=== PATIENT | female | born 1985 | race Caucasian/White ===

== ENCOUNTER 2023-06-08 12:49 | Outpatient (OUT) | payer BC, SELFPAY ==
--- NOTE | 2023-06-08 | US_ITS ---
Patient Name: ELLI MCGARRY MR#: [id number] : 1985 Exam Date: 06/08/2023 Ordering Doctor: DR Cole Galicia . RADIOLOGY REPORT PROCEDURE: MM TOMOSYNTHESIS DIAGNOSTIC BI, 06/08/2023, 12:54 US BREAST RT LIMITED, 06/08/2023, 13:08 COMPARISON: MG MAMM RT DIAG W CAD, 02/14/2020. MAMMO POST BIOPSY RIGHT, 07/23/2019. MG MAMM ANNI DIAG W CAD, 07/18/2019. INDICATIONS: mass of right breast N63.10 Calculator Name NCI Breast Cancer Risk Assessment Tool 5 Year Breast Cancer Risk Not Reported. Lifetime Breast Cancer Risk Not Reported. Personal Breast Cancer No Personal Ovarian Cancer No Treatments None Family Cancers None LOCATION: [facility] BREAST COMPOSITION: Extremely dense, which lowers the sensitivity of mammography. FINDINGS: DIAGNOSTIC CATEGORY 2--BENIGN FINDING: RIGHT BREAST: Skin surface marker localizes the patient's palpable lump to the upper-outer quadrant. Small lymph node deep to this area seen on mammography. Ultrasound evaluation demonstrates a benign-appearing 7 x 6 x 3 mm lymph node corresponding to the palpable lump. No suspicious findings. LEFT BREAST: No significant suspicious finding. Scattered benign-appearing lymph nodes are present. No significant change has occurred. RECOMMENDATIONS: ROUTINE MAMMOGRAM AND CLINICAL EVALUATION IN 12 MONTHS. PLEASE NOTE: A NORMAL MAMMOGRAM DOES NOT EXCLUDE THE POSSIBILITY OF BREAST CANCER. A CLINICALLY SUSPICIOUS PALPABLE LUMP SHOULD BE BIOPSIED. Dictated by: Ehsan Sykes M.D. on 06/08/2023 at 13:34 Approved by: Ehsan Sykes M.D. on 06/08/2023 at 13:40
== END 2023-06-08 12:50 | disposition home or self-care (01) ==
LOC: MAMMO 12:49
PROVIDERS: PCP Family Medicine; Visit Provider Obstetrics & Gynecology
DX: N63.10 Unspecified lump in the right breast, unspecified quadrant (principal); N63.11 Unspecified lump in the right breast, upper outer quadrant
CPT/HCPCS: 76642; 77066; G0279

== ENCOUNTER 2024-05-30 11:11 | Outpatient (OUT) | payer BC, SELFPAY ==
--- NOTE | 2024-05-30 11:13 | MM_ITS ---
Patient Name: ELLI MCGARRY MR#: [id number] : 1985 Exam Date: 05/30/2024 Ordering Doctor: DR Yoni Mary . RADIOLOGY REPORT PROCEDURE: MM TOMOSYNTHESIS SCREENING BI COMPARISON: MG MAMM RT DIAG W CAD, 02/14/2020. MM TOMOSYNTHESIS DIAGNOSTIC BI, 06/08/2023. INDICATIONS: Screening Calculator Name NCI Breast Cancer Risk Assessment Tool 5 Year Breast Cancer Risk Not Reported. Lifetime Breast Cancer Risk Not Reported. Personal Breast Cancer No Personal Ovarian Cancer No Treatments None Family Cancers None LOCATION: [facility] BREAST COMPOSITION: The breasts are extremely dense, which lowers the sensitivity of mammography. FINDINGS: DIAGNOSTIC CATEGORY 2--BENIGN FINDING. NO CHANGE FROM COMPARISON. Scattered benign-appearing nodules are present. Scattered benign-appearing calcifications are present. Scattered benign-appearing lymph nodes are present. RIGHT BREAST: No significant suspicious finding. LEFT BREAST: No significant suspicious finding. RECOMMENDATIONS: ROUTINE MAMMOGRAM AND CLINICAL EVALUATION IN 12 MONTHS. PLEASE NOTE: A NORMAL MAMMOGRAM DOES NOT EXCLUDE THE POSSIBILITY OF BREAST CANCER. A CLINICALLY SUSPICIOUS PALPABLE LUMP SHOULD BE BIOPSIED. Dictated by: Jonathon Rose MD on 05/30/2024 at 12:41 Approved by: Jonathon Rose MD on 05/30/2024 at 12:42
--- OUTSIDE RECORDS SUMMARY | 2024-05-30 11:14 | XMS_ITS | CCD ---
Author Organization [facility] Care Team Providers Care Mail Technician Name Role Phone THALIA BARAJAS Admitting Unavailable THALIA BARAJAS Attending Unavailable ALLYN, RAYSA Primary Care Unavailable THALIA BARAJAS Consulting Unavailable HERB EPPERSON Consulting Unavailable NATHALIE, DR YONI Hernandez Admitting Unavailable NADBEATRICE, DR YONI Hernandez Attending Unavailable NATHALIE, DR YONI Hernandez Primary Care Unavailable NATHALIE, DR YONI Hernandez Consulting Unavailable BRODIE, DR GONZALEZ Admitting Unavailable BRODIE, DR GONZALEZ Attending Unavailable RAYSA GRUBER Primary Care Unavailable BRODIE, DR GONZALEZ Consulting Unavailable JENN, THALIA Admitting Unavailable JENN, THALIA Attending Unavailable RAYSA GRUBER Primary Care Unavailable NATHALIE, YONI Attending Unavailable Yoni Zelaya MD Primary Care Provider Allergies Allergy Classification Reported Allergen(s) Allergy Type Date of Onset Reaction(s) Facility (1 source) Sulfonamides (Antibiotic) Drug allergy (disorder) 4 [facility] (2 sources) Sulfonamides (Antibiotic) Drug Intolerance 9 Nausea And Vomiting [facility] Medications Current Medications Medication Drug Class(es) Dates Sig (Normalized) Sig (Original) cyclobenzaprine hydrochloride 10 mg oral tablet (2 sources) Muscle Relaxant Start: 04-18-2024 take 1 tablet by mouth three times daily as needed for muscle spasms cyclobenzaprine (Flexeril) 10 MG tablet Indications: Neck muscle spasm Take 1 tablet (10 mg) by mouth 3 (three) times a day as needed for muscle spasms 30 tablet 1 04/18/2024 Active Start: 04-18-2024 take 1 tablet by anjana th three times daily as needed for muscle spasms cyclobenzaprine (Flexeril) 10 MG tablet Indications: Neck muscle spasm Take 1 tablet (10 mg) by mouth 3 (three) times a day as needed for muscle spasms 30 tablet 1 04/18/2024 Active predniSONE 50 mg oral tablet (2 sources) Start: 04-18-2024 End: 04-24-2024 take 1 tablet by mouth once daily predniSONE (Deltasone) 50 MG tablet Indications: Neck muscle spasm Take 1 tablet (50 mg) by mouth Daily for 6 days 6 tablet 04/18/2024 04/24/2024 Active Problems Active Problems Problem Classification Problem Date Documented Da te Episodic/Chronic Asthma (2 sources) Mild intermittent asthma; Translations: [Mild intermittent asthma, uncomplicated] Onset: 04-18-2024 04-18-2024 Chronic Other connective tissue disease (4 sources) Muscle spasm of cervical muscle of neck; Translations: [Other muscle spasm] Onset: 04-18-2024 04-18-2024 Episodic Other screening for suspected conditions (not mental disorders or infectious disease) (6 sources) Encounter for screening for malignant neoplasm of cervix; Translations: [Patient encounter status] Onset: 03-23-2022 Episodic Past or Other Problems Problem Classification Problem Date Documented Date Episodic/Chronic Immunizations and screening for infectious disease (1 source) Encounter for screening for human papillomavirus (HPV); Translations: [ENC SCREENING HUMAN PAPILLOMAVIRUS] Onset: 03-27-2022 Episodic Sprains and strains (8 sources) Unspecified sprain of right shoulder joint, initial encounter; Translations: [Strain of other muscles, fascia and tendons at shoulder and upper arm level, unspecified arm, initial encounter] Onset: 01-26-2022 Episodic Results Test Name Value Interpretation Reference Range Facility CBC AUTO DIFFon 05-27-2022 BASO # 0.0 103/ul Normal 0.0-0.1 [facility] Comment on above: Performed By: #### C BC #### [facility] [address] [address] [address] Radha Johnson Basophils/100 WBC (Bld) 0.4 % Normal 0.2-2.0 [facility] Comment on above: Performed By: #### C BC #### [facility] [address] [place], [place] [address] Dr. Radha Johnson EO # 0.1 103/ul Normal 0.0-0.7 [facility] Comment on above: Performed By: #### C BC #### [facility] [address] [place] [address] Dr. Radha Johnson Eosinophils/100 WBC (Bld) 1.1 % Normal 0.9-7.0 [facility] Comment on above: Performed By: #### C BC #### [facility] [address] [place] [address] Dr. Radha Johnson Erythrocyte distribution width (RBC) [Ratio] 12.8 % Normal 11.0-15.0 [facility] Comment on above: Performed By: #### C BC #### [facility] [address] [place] [address] Dr. Radha Johnson Hematocrit (Bld) [Volume fraction] 42.0 % Normal 36.0-48.0 [facility] Comment on above: Performed By: #### C BC #### [facility] [address] [place] [address] Dr. Radha Johnson Hemoglobin (Bld) [Mass/Vol] 13.6 g/dL Normal 12.0-16.0 [facility] Comment on above: Performed By: #### C BC #### [facility] [address] [place] [address] Dr. Radha Johnson IG # 0.04 10e3/ul Critically high 0.00-0.03 [facility] Comment on above: Performed By: #### C BC #### [facility] [address] [place] [address] Dr. Radha Johnson IG % 0.4 % Normal 0.0-0.5 [facility] Comment on above: Performed By: #### C BC #### [facility] [address] [place] [address] Dr. Radha Johnson LYMPH # 2.4 103/ul Normal 1.2-3.8 [facility] Comment on above: Performed By: #### C BC #### [facility] [address] [place] [address] Dr. Radha Johnson Lymphocytes/100 WBC (Bld) 24.4 % Normal 20.5-60.0 [facility] Comment on above: Performed By: #### C BC #### [facility] [address] [place] [address] Dr. Radha Johnson MANUAL DIFF REQ NO Normal [facility] Comment on above: Performed By: #### C BC #### [facility] [address] [place] [address] Dr. Radha Johnson MCH (RBC) [Entitic mass] 29.6 pg Normal 26.7-34.0 [facility] Comment on above: Performed By: #### C BC #### [facility] [address] [place] [address] Dr. Radha Johnson MCHC (RBC) [Mass/Vol] 32.4 g/dL Normal 29.9-35.2 [facility] Comment on above: Performed By: #### C BC #### [facility] [address] [place] [address] Dr. Radha Johnson MCV (RBC) [Entitic vol] 91.3 fL Normal 81.0-99.0 [facility] Comment on above: Performed By: #### C BC #### [facility] [address] [place] [address] Dr. Radha Johnson MONO # 0.6 103/ul Normal 0.3-0.8 [facility] Comment on above: Performed By: #### C BC #### [facility] [address] [place] [address] Dr. Radha Johnson Monocytes/100 WBC (Bld) 6.0 % Normal 1.7-12.0 [facility] Comment on above: Performed By: #### C BC #### [facility] [address] [place] [address] Dr. Radha Johnson NEUT # 6.6 103/ul Critically high 1.4-6.5 [facility] Comment on above: Performed By: #### C BC #### [facility] [address] [place] [address] Dr. Radha Johnson Neutrophils/100 WBC (Bld) 67.7 % Normal 43.0-75.0 [facility] Comment on above: Performed By: #### C BC #### [facility] [address] [address] [address] Radha Johnson Platelet mean volume (Bld) [Entitic vol] 10.6 fL Normal 9.5-13.5 [facility] Comment on above: Performed By: #### C BC #### [facility] [address] [place] [address] Dr. Radha Johnson PLT 337 103/ul Normal 150-450 [facility] Comment on above: Performed By: #### C BC #### [facility] [address] [address] [address] Radha Johnson RBC 4.60 106/ul Normal 4.20-5.40 [facility] Comment on above: Performed By: #### C BC #### [facility] [address] [place] [address] Dr. Radha Johnson WBC 9.7 103/ul Normal 4.0-11.0 [facility] Comment on above: Performed By: #### C BC #### [facility] [address] [place] [address] Dr. Radha Johnson GLYCOHEMOGLOBIN A1Con 2021 ADA RECOMMENDATION SEE BELOW Normal [facility] Comment on above: Result Comment: ADA RECOMMENDED LIMIT 4.0 - 6.0 ADA THERAPEUTIC TARGET < 7.0 ACTION SUGGESTED > 7.0 Performed By: #### A 1C #### [facility] [address] [place] [address] Dr. Radha Johnson Glucose [Mass/Vol] 111 mg/dL Normal [facility] Comment on above: Performed By: #### A 1C #### [facility] [address] [place] [address] Dr. Radha Johnson HbA1c (Bld) [Mass fraction] 5.5 % Normal 4.5-6.2 [facility] Comment on above: Performed By: #### A 1C #### [facility] [address] [place] [address] Dr. Radha Johnson LIPID PROFILEon 05-27-2022 CHOL-HDL RATIO NORM SEE BELOW Normal [facility] Comment on above: Result Comment: 3.3 - 4.4 LOW RISK 4.4 - 7.1 AVERAGE RISK 7.1 - 11.0 MODERATE RISK >11.0 HIGH RISK Performed By: #### T ADAN CMP, LIPID #### [facility] [address] [address] [address] Radha Johnson Cholesterol [Mass/Vol] 217 mg/dL Critically high <=200 [facility] Comment on above: Performed By: #### T ADAN, CMP, LIPID #### [facility] [address] [address] [address] Radha Johnson Cholesterol in HDL [Mass/Vol] 56 mg/dL Normal 40-60 [facility] Comment on above: Performed By: #### T ADAN CMP, LIPID #### [facility] [address] [address] [address] Radha Johnson Cholesterol in LDL [Mass/Vol] 131.8 mg/dL Normal [facility] Comment on above: Performed By: #### T ADAN CMP, LIPID #### [facility] [address] [address] [address] Radha Johnson Cholesterol.total/Ch olesterol in HDL [Mass ratio] 3.9 {ratio} Normal [facility] Comment on above: Performed By: #### T ADAN CMP, LIPID #### [facility] [address] [address] [address] Radha Johnson HDL NORMAL > or = 60 mg/dl - LO W CARDIOVASCULAR RISK <40 mg/dl - HIGH CARDIOVASCULAR RISK Normal [facility] Comment on above: Performed By: #### T SH, CMP, LIPID #### [facility] [address] [address] [address] Radha Johnson LDL CALC NORMAL SEE BELOW Normal [facility] Comment on above: Result Comment: <100 mg/dl OPTIMAL 100 - 129 mg/dl NEAR OR ABOVE OPTIMAL 130 - 159 mg/dl BORDERLINE HIGH 160 - 189 mg/dl HIGH >190 mg/dl VERY HIGH Performed By: #### T SH, CMP, LIPID #### [facility] [address] [address] [address] Radha Johnson Triglyceride [Mass/Vol] 146 mg/dL Normal <=150 [facility] Comment on above: Performed By: #### T SH, CMP, LIPID #### [facility] [address] [place] [address] Dr. Radha Johnson VLDL CALC 29.2 mg/dL Normal [facility] Comment on above: Performed By: #### T SH, CMP, LIPID #### [facility] [address] [place] [address] Dr. Radha Johnson PROF 14(COMP METB)on 022 Albumin [Mass/Vol] 4.2 g/dL Normal 3.4-5.0 [facility] Comment on above: Performed By: #### T SH, CMP, LIPID #### [facility] [address] [place] [address] Dr. Radha Johnson Albumin/Globulin [Mass ratio] 1.0 {ratio} Normal [facility] Comment on above: Performed By: #### T SH, CMP, LIPID #### [facility] [address] [place] [address] Dr. Radha Johnson ALP [Catalytic activity/Vol] 71 U/L Normal 46-116 [facility] Comment on above: Performed By: #### T SH, CMP, LIPID #### [facility] [address] [place] [address] Dr. Radha Johnson ALT [Catalytic activity/Vol] 37 U/L Normal 14-59 [facility] Comment on above: Performed By: #### T SH, CMP, LIPID #### [facility] [address] [place] [address] Dr. Radha Johnson Anion gap [Moles/Vol] 9.3 mmol/L Normal [facility] Comment on above: Performed By: #### T SH, CMP, LIPID #### [facility] [address] [place] [address] Dr. Radha Johnson AST [Catalytic activity/Vol] 18 U/L Normal 15-37 [facility] Comment on above: Performed By: #### T SH, CMP, LIPID #### [facility] [address] [place] [address] Dr. Radha Johnson Bilirubin [Mass/Vol] 0.2 mg/dL Normal 0.2-1.0 [facility] Comment on above: Performed By: #### T SH, CMP, LIPID #### [facility] [address] [address] [address] Radha Johnson Calcium [Mass/Vol] 9.7 mg/dL Normal 8.5-10.1 [facility] Comment on above: Performed By: #### T SH, CMP, LIPID #### [facility] [address] [place] [address] Dr. Radha Johnson Chloride [Moles/Vol] 101 mmol/L Normal 98-107 [facility] Comment on above: Performed By: #### T SH, CMP, LIPID #### [facility] [address] [place] [address] Dr. Radha Johnson CO2 [Moles/Vol] 30.0 mmol/L Normal 21.0-32.0 [facility] Comment on above: Performed By: #### T SH, CMP, LIPID #### [facility] [address] [place] [address] Dr. Radha Johnson Creatinine [Mass/Vol] 0.76 mg/dL Normal 0.55-1.02 [facility] Comment on above: Performed By: #### T SH, CMP, LIPID #### [facility] [address] [place] [address] Dr. Radha Johnson EGFR-AF JAMAICAN >60 Normal >=60 [facility] Comment on above: Performed By: #### T SH, CMP, LIPID #### [facility] [address] [place] [address] Dr. Radha Johnson EGFR-NON AF JAMAICAN >60 Normal >=60 [facility] Comment on above: Performed By: #### T SH, CMP, LIPID #### [facility] [address] [place] [address] Dr. Radha Johnson Globulin (S) [Mass/Vol] 4.1 g/dL Normal [facility] Comment on above: Performed By: #### T SH, CMP, LIPID #### [facility] [address] [address] [address] Radha Johnson Glucose [Mass/Vol] 105 mg/dL Normal 74-106 [facility] Comment on above: Performed By: #### T SH, CMP, LIPID #### [facility] [address] [place] [address] Dr. Radha Johnson Potassium [Moles/Vol] 4.3 mmol/L Normal 3.5-5.1 [facility] Comment on above: Performed By: #### T SH, CMP, LIPID #### [facility] [address] [place] [address] Dr. Radha Johnson Protein [Mass/Vol] 8.3 g/dL Critically high 6.4-8.2 [facility] Comment on above: Performed By: #### T SH, CMP, LIPID #### [facility] [address] [place] [address] Dr. Radha Johnson Sodium [Moles/Vol] 136 mmol/L Normal 136-145 [facility] Comment on above: Performed By: #### T SH, CMP, LIPID #### [facility] [address] [address] [address] Radha Johnson Urea nitrogen [Mass/Vol] 12.0 mg/dL Normal 7.0-18.0 [facility] Comment on above: Performed By: #### T SH, CMP, LIPID #### [facility] [address] [place] [address] Dr. Radha Johnson Urea nitrogen/Creatinine [Mass ratio] 15.8 mg/mg Normal [facility] Comment on above: Performed By: #### T SH, CMP, LIPID #### [facility] [address] [place] [address] Dr. Radha Johnson TSHon 05-27-2022 TSH 1.039 uIU/mL Normal 0.358-3.740 [facility] Comment on above: Performed By: #### T SH, CMP, LIPID #### [facility] [address] [place] [address] Dr. Radha Johnson PAP ACOG PANEL 2: 30 to 65on 03-30-2022 . . Normal [facility] Comment on above: Result Comment: Perf ormed at: WB Performed By: #### [id number] #### [facility] [address] [address] [address] Radha Johnson Age Gdln ACOG Testing 30-65 Normal [facility] Comment on above: Performed By: #### [id number] #### [facility] [address] [address] [address] Radha Johnson DIAGNOSIS: Comment Normal [facility] Comment on above: Result Comment: NEGA TIVE FOR INTRAEPITHELIAL LESION OR MALIGNANCY. Performed at: WB Performed By: #### [id number] #### [facility] [address] [address] [address] Radha Johnson HPV Aptima Positive Abnormal Negative [facility] Comment on above: Result Comment: This nucleic acid amplification test detects fourteen high-risk HPV types (16,18,31,33,35,39,45,51,52,56,58,59,66,68) without differentiation. Performed at: =G Performed By: #### [id number] #### [facility] [address] [place] [address] Dr. Radha Johnson HPV Genotype 16 Negative Normal Negative [facility] Comment on above: Result Comment: Perf ormed at: =G Performed By: #### [id number] #### [facility] [address] [place] [address] Dr. Radha Johnson HPV Genotype 18,45 Positive Abnormal Negative [facility] Comment on above: Result Comment: Perf ormed at: =G Performed By: #### [id number] #### [facility] [address] [address] [address] Radha Johnson Methodology: Comment Normal [facility] Comment on above: Result Comment: This liquid based ThinPrep(R) pap test was screened with the use of an image guided system. Performed at: WB Performed By: #### [id number] #### [facility] [address] [place] [address] Dr. Radha Johnson Note: Comment Normal [facility] Comment on above: Result Comment: The Pap smear is a screening test designed to aid in the detection of premalignant and malignant conditions of the uterine cervix. It is not a diagnostic procedure and should not be used as the sole means of detecting cervical cancer. Both false-positive and false-negative reports do occur. . Performed at: WB Performed By: #### [id number] #### [facility] [address] [address] [address] Radha Johnson Performed by: Comment Normal [facility] Comment on above: Result Comment: Tamera Cordoba, Ship'S Engineer (ASCP) Performed at: WB Performed By: #### [id number] #### [facility] [address] [address] [address] Radha Johnson Specimen adequacy: Comment Normal [facility] Comment on above: Result Comment: Sati sfactory for evaluation. Endocervical and/or squamous metaplastic cells (endocervical component) are present. Performed at: WB Performed By: #### [id number] #### [facility] [address] [place] [address] Dr. Radha Johnson MRI SHOULDER RT WO CONon MRI SHOULDER RT WO CON EXAM: MRI SHOULDER RT WO CON HISTORY: Right shoulder pain COMPARISON: None. TECHNIQUE: Multiplanar, multi sequential MRI sequences were performed FINDINGS: Patient appears to have undergone a biceps tenodesis. Single suture anchors present within the bicipital tunnel. The intra-articular component of the biceps tendon long head is not visualized. No gross irregularity of the glenoid labrum. No fracture, dislocation, subluxation or osseous lesion. No glenohumeral joint effusion. Degenerative changes of the acromioclavicular joint. No abnormal fluid within the subacromial-subdeltoid bursal space. The superficial subcutaneous soft tissues are free of edema, hematoma, mass or cyst. The coracoclavicular ligaments are unremarkable. Mild edema of the infraspinatus myotendinous junction. The remainder of the infraspinatus tendon is unremarkable. The supraspinatus, subscapularis and teres minor tendons are unremarkable. No muscle atrophy or fatty infiltration. The articular cartilage of the humeral head and glenoid exhibit no gross chondral or osteochondral defects. Old posttraumatic subchondral cysts within the posterior aspect of the glenoid. IMPRESSION: Mild tendinopathy of the infraspinatus myotendinous junction. Electronically authenticated by: HERB EPPERSON Date: 2022-02-18 15:36 Normal [facility] Vital Signs Date Time Vital Sign Value Performing Clinician [place] 04-18-2024 11:22-0400 Body height 160 cm Yoni Zelaya MD Work Phone: [facility] 04-18-2024 11:22-0400 Body mass index (BMI) [Ratio] 26.75 kg/m2 Yoni Zelaya MD Work Phone: [facility] 04-18-2024 11:22-0400 Body temperature 97.5 [degF] Yoni Zelaya MD Work Phone: [facility] 04-18-2024 11:22-0400 Body weight 68.49 kg Yoni Zelaya MD Work Phone: [facility] 04-18-2024 11:22-0400 Diastolic blood pressure 62 mm[Hg] Yoni Zelaya MD Work Phone: [facility] 04-18-2024 11:22-0400 Heart rate 106 /min Yoni Zelaya MD Work Phone: [facility] 04-18-2024 11:22-0400 Respiratory rate 22 /min Yoni Zelaya MD Work Phone: [facility] 04-18-2024 11:22-0400 SaO2% (BldA) [Mass fraction] 99 % Yoni Zelaya MD Work Phone: [facility] 04-18-2024 11:22-0400 Systolic blood pressure 110 mm[Hg] Yoni Zelaya MD Work Phone: [facility] Healthcare Encounters Encounter Date Encounter Type Care Provider Facility Start: 04-18-2024 End: 04-18-2024 Bamboo flowsheet Yoni Zelaya MD Work Phone: [facility] Start: 04-18-2024 End: 04-18-2024 Bamboo flowsheet Yoni Zelaya MD Work Phone: [facility] Start: 04-18-2024 End: 04-18-2024 ambulatory YONI ZELAYA Not Available Start: 04-18-2024 End: 04-18-2024 Patient encounter procedure Yoni Zelaya MD Work Phone: [facility] Work Phone: Start: 04-18-2024 End: 04-18-2024 Periodic preventive med est patient 40-64yrs Yoni Zelaya MD Work Phone: [facility] Comment on above: Annual physical exam (Primary Dx); Neck muscle spasm; Breast cancer screening by mammogram Start: 05-29-2022 Encounter for genera l adult medical examination without abnormal findings DR YONI ZELAYA [facility] Start: 05-27-2022 End: 05-28-[address] YONI ZELAYA Facility:[facility] Start: 05-27-2022 End: 05-28-2022 Encounter for general adult medical examination without abnormal findings DR YONI ZELAYA Facility:[facility] Start: 03-23-2022 End: 03-23-[address] LISA GALCIIA Facility:[facility] Start: 02-18-2022 End: 02-19-2022 ambulatory THALIA BARAJAS Facility:[facility] Start: 01-26-2022 End: 02-17-2022 ambulatory THALIA BARAJAS Facility:[facility] Procedures Date Procedure Procedure Detail Performing Clinician Start: 06-08-2023 Mammography Yoni monroy MD Work Phone: Plan of Treatment Date Care Activity Detail Author Start: 10-09-2024 End: 10-09-2024 Patient encounter procedure 10/09/2024 9:00 AM EDT Office Visit [facility] [address] [place] [id number] Lisa Galicia, [address] [place] [address] [facility] Start: 06-08-2024 Screening for malign ant neoplasm of breast Mammogram [facility] Start: 04-18-2024 End: 04-18-2025 Basic metabolic 1998 panel - Serum or Plasma Basic metabolic panel Lab Routine Annual physical exam Expected: 04/18/2024 (Approximate), Expires: 04/18/2025 [facility] Comment on above: Expected: 04/18/2024 (Approximate), Expires: 04/18/2025 Start: 04-18-2024 End: 04-18-2025 CBC W Auto Differential panel - Blood CBC and differential Lab Routine Annual physical exam Expected: 04/18/2024 (Approximate), Expires: 04/18/2025 [facility] Comment on above: Expected: 04/18/2024 (Approximate), Expires: 04/18/2025 Start: 04-18-2024 End: 04-18-2025 Hemoglobin A1c/Hemoglobin.total in Blood Hemoglobin A1c Lab Routine Annual physical exam Expected: 04/18/2024 (Approximate), Expires: 04/18/2025 [facility] Work Phone: Comment on above: Expected: 04/18/2024 (Approximate), Expires: 04/18/2025 Start: 04-18-2024 End: 04-18-2025 Hepatic function 2000 panel - Serum or Plasma Hepatic function panel Lab Routine Annual physical exam Expected: 04/18/2024 (Approximate), Expires: 04/18/2025 [facility] Comment on above: Expected: 04/18/2024 (Approximate), Expires: 04/18/2025 Start: 04-18-2024 End: 04-18-2025 Lipid 1996 panel - Serum or Plasma Lipid panel Lab Routine Annual physical exam Expected: 04/18/2024 (Approximate), Expires: 04/18/2025 [facility] Comment on above: Expected: 04/18/2024 (Approximate), Expires: 04/18/2025 Start: 04-18-2024 End: 06-18-2025 MG Breast - bilateral Screening Bilateral screening mammogram Imaging Routine Breast cancer screening by mammogram Expected: 04/18/2024, Expires: 06/18/2025 [facility] Comment on above: Expected: 04/18/2024 , Expires: 06/18/2025 Start: 04-18-2024 End: 04-18-2025 Thyrotropin [Units/volume] in Serum or Plasma TSH Lab Routine Annual physical exam Expected: 04/18/2024 (Approximate), Expires: 04/18/2025 [facility] Comment on above: Expected: 04/18/2024 (Approximate), Expires: 04/18/2025 Start: 03-11-2024 Influenza vaccination Influenza Vacc ine (#1) [facility] Start: 2024 Screening for malign ant neoplasm of breast Mammogram [facility] Start: 2014 Screening for malign ant neoplasm of cervix [facility] Start: 2005 Screening for malign ant neoplasm of cervix Pap Smear [facility] Payers Date Payer Category Payer Unknown BCBS BCBS [id number] 2023-Present [phone] [address] [place] [address] [id number] 1984 Unknown [id number] 1984 Unknown [id number] 1984 Unknown [id number] 1984 Unknown [id number] 1984 Unknown [id number] 1959 Unknown [id number] 1959 Unknown [id number] Social History Date Type Detail Facility Tobacco smoking stat [facility] Tobacco smoking consumption unknown [facility] Start: 1984 Sex assigned at Not on file [facility] Start: 04-18-2024 Gender identity Not on file [facility] Start: 04-18-2024 Tobacco smoking stat [facility] Never smoked tobacco [facility] Start: 04-18-2024 Tobacco use and exposure Smokeless t obacco non-user [facility] Start: 04-18-2024 History of Social function [facility] History of Present illness Narrative 04-18-2024 Yoni Zelaya MD - 04/18/2024 11:44 AM EDRichard Zelaya MD - 04/18/2024 11:43 AM Josiah Zelaya MD - 04/18/2024 11:15 AM EDT Note Date & Type Note Facility 04-18-2024 History of Presen t illness Narrative Associated Problem(s): Neck muscle spasm Recent pain and spasms. Treat with prednisone. Use flexeril and heat PRN. Start ROM exercises. Associated Problem(s): Annual physical exam Due for labs. Will need mammogram in June. Discussed proper diet and regular aerobic exercise. Need aerobic exercise 5-6 days a week for 30 minutes at a time. Smaller portions and limit total calories. Colonoscopy after age 45. Tetanus every 10 years. Advised not to smoke. Images from the original note were not included. Subjective Patient ID: Argenis Garcia is a 39 y.o. female who presents for Annual Exam (wellness) and Neck Pain. Presents for annual PE. Weight unchanged over the past year. Tries to stay active and exercise several days a week. Tries to watch diet and eat healthy. Increased fruits and vegetables. Smaller portions and limits snacking. Tries to limit total daily calories. Due for labs. Will be due for mammogram at end of May. C/o neck pain for the past 1-2 days. Brushing hair and turned head. Sudden onset of pain and tightness in right lower neck. Pain radiates into top upper arm and into back head. Severe tightness in trapezius muscle. Decreased ROM and hard to turn head side to side. Using motrin and not helping. Ice helped. Review of Systems Respiratory: Negative for cough, shortness of breath and wheezing. Cardiovascular: Negative for chest pain and palpitations. Gastrointestinal: Negative for abdominal pain, diarrhea, nausea and vomiting. Genitourinary: Negative for dysuria. Objective Physical Exam Constitutional: General: She is not in acute distress. Appearance: Normal appearance. HENT: Head: Normocephalic. Right Ear: Tympanic membrane normal. Left Ear: Tympanic membrane normal. Eyes: Extraocular Movements: Extraocular movements intact. Pupils: Pupils are equal, round, and reactive to light. Cardiovascular: Rate and Rhythm: Normal rate and regular rhythm. Heart sounds: No murmur heard. No friction rub. No gallop. Pulmonary: Effort: Pulmonary effort is normal. Breath sounds: Normal breath sounds. No wheezing, rhonchi or rales. Abdominal: General: Bowel sounds are normal. There is no distension. Palpations: Abdomen is soft. Tenderness: There is no abdominal tenderness. There is no guarding or rebound. Musculoskeletal: General: No swelling or tenderness. Cervical back: Neck supple. Right lower leg: No edema. Left lower leg: No edema. Skin: Findings: No erythema or rash. Neurological: General: No focal deficit present. Mental Status: She is alert and oriented to person, place, and time. Cranial Nerves: No cranial nerve deficit. Motor: No weakness. Gait: Gait normal. Assessment/Plan Problem List Items Addressed This Visit Annual physical exam - Primary Due for labs. Will need mammogram in June. Discussed proper diet and regular aerobic exercise. Need aerobic exercise 5-6 days a week for 30 minutes at a time. Smaller portions and limit total calories. Colonoscopy after age 45. Tetanus every 10 years. Advised not to smoke. Relevant Orders Hemoglobin A1c Basic metabolic panel CBC and differential Hepatic function panel Lipid panel TSH Neck muscle spasm Recent pain and spasms. Treat with prednisone. Use flexeril and heat PRN. Start ROM exercises. Relevant Medications predniSONE (Deltasone) 50 MG tablet cyclobenzaprine (Flexeril) 10 MG tablet Other Visit Diagnoses Breast cancer screening by mammogram Relevant Orders Bilateral screening mammogram documented in this encounter [facility] Evaluation note Note Date & Type Note Facility Evaluation note Diagnosis Annual physical exam- Primary Routine general medical examination at a health care facility Neck muscle spasm Breast cancer screening by mammogram documented in this encounter [facility] Summary Purpose Family History No Family History Records FoundNo Family History Records Found Advance Directives No Advanced Directives Records FoundNo Advanced Directives Records Found Additional Source Comments INFORMATION SOURCE (unrecogn ized section and content) DATE CREATED AUTHOR 08/24/2022 [facility] DATE CREATED AUTHOR AUTHOR'S ORGANIZ ATION 04/20/2024 [facility] EPIC Care Teams (unrecognized sec tion and content) Mail Technician Relationship Specialty Start Date End Date Yoni Zelaya MD [address] [place] [address] PCP - General Family Medicine 04/17/24 Mail Technician Relationship Specialty Start Date End Date Yoni Zelaya MD [address] [place] [address] PCP - General Family Medicine 04/17/24 Reason for Visit (unrecogniz ed section and content) Reason Comments Annual Exam wellness Neck Pain FOR RECORDS PERTAINING TO PATIENTS WHO ARE OR HAVE BEEN ENROLLED IN A CHEMICAL DEPENDENCY/SUBSTANCEABUSE PROGRAM, SOME INFORMATION MAY BE OMITTED. This clinical summary was aggregated from multiple sources. Caution should be exercised in using it in the provision of clinical care. This summary normalizes information from multiple sources, and as a consequence, information in this document may materially change the coding, format and clinical context of patient data. In addition, data may be omitted in some cases. CLINICAL DECISIONS SHOULD BE BASED ON THE PRIMARY CLINICAL RECORDS. [employer] [facility]. provides no warranty or guarantee of the accuracy or completeness of information in this document.
== END 2024-05-30 11:12 | disposition home or self-care (01) ==
LOC: MAMMO 11:11
PROVIDERS: PCP Family Medicine; Visit Provider Family Medicine
DX: Z12.31 Encounter for screening mammogram for malignant neoplasm of breast (principal)
CPT/HCPCS: 77063; 77067

== ENCOUNTER 2024-10-09 14:38 | Outpatient (REF) | payer BC, SELFPAY ==
[2024-10-13 12:08] LABS: Age Gdln ACOG Testing Note (.); HPV Aptima Positive (Negative); HPV Genotype 16 Negative (Negative); HPV Genotype 18,45 Positive (Negative); IGP, Aptima HPV, rfx 16/18,45 Note (.)
== END 2024-10-09 14:39 | disposition home or self-care (01) ==
LOC: LAB 14:38
PROVIDERS: PCP Family Medicine; Visit Provider Obstetrics & Gynecology
DX: Z01.419 Encounter for gynecological examination (general) (routine) without abnormal findings (principal)
CPT/HCPCS: 87624; 88175

== ENCOUNTER 2025-05-06 12:13 | Outpatient (REF) | payer BC, SELFPAY ==
--- OUTSIDE RECORDS SUMMARY | 2025-04-29 07:05 | XMS_ITS | Continuity of Care Document ---
Author Organization [facility] Address [address] [place] [address] Phone Care Team Providers Care Filler Shredder Helper Name Role Phone Yoni Mary MD Primary Care Provider [phone] Yoni Mary MD Attending Provider Care Teams Patient Care Team Team Status: Active Member Role/Relationship Status Dates Yoni Mary MD Primary Care Provider Active Patient Care Team Team Status: Active Member Role/Relationship Status Dates Yoni Mary MD Primary Care Provider Active S tart: April 25, 2025 Ham Chilel ProviderActiveStart: April 25, 2025 Patient Care Team Team Status: Inactive Member Role/Relationship Status Dates Yoni Mary MD Primary Care Provider Active S tart: April 29, 2025 End: April 29, 2025Ham Chilel ProviderActiveStart: April 29, 2025 End: April 29, 2025 Chief Complaint and Reason for Visit Chief Complaint Admit Date Annual Wellness April 29, 2025 1 0:18am Allergies, Adverse Reactions, Alerts Allergen Type Severity Reaction Last Updated Verified Status Sulfa (Sulfonamide Antibiotics) Allergy Unknown Nausea, stomach upset April 29, 2025 10:36am Yes Active Social History Smoking Status Status Start Date End Date Date of Observa tion Never smoked tobacco (finding) May 19, 2023 4:29pm Observation Status Observation Response Date of Response Legal Sex Female (finding) [facility] Family History Relationship Condition Age at Onset Recorded Date/T aleksandr family member Family history of other condition Unknow n Problems Active Problems Problem Diagnosis/Recorded Date Onset Date Status C omments Right upper quadrant abdomin al pain April 24, 2025 3:31pm Unknown Active Antral gastritisOctober 2024 3:31pmUnknownActiveMild intermittent asthma without complicationOctober 2024 3:30pmUnknownActiveNeck muscle spasm April 24, 2025 3:30pmUnknownActiveAnnual physical examOctober 2024 4:43pmUnknownActiveSeasonal allergic rhinitis due to pollenOctober 2024 3:31pmUnknownActiveGERD (gastroesophageal reflux disease)April 24, 2025 3:31pmUnknownActiveHiatal herniaOctober 2024 3:31pmUnknownActive Inactive/Resolved Problems Problem Diagnosis/Recorded Date Onset Date Status C omments Arm paresthesia, left October 28, 2017 4:30pm Unknown Resolved Problem List clean-up per request of Phys. EHR Cmte Medications Medication Status Dose Units Route Directions Qty Days Refills S tart Date Stop Date End Date Reason(s) Instructions Adherence Cyclobenzaprine 10 mg tablet Discontinued 10 MG PO Three times daily as needed for muscle spasm 20 Apr2017 12:00amOct[facility] 2024 10:36am Relevant Diagnostic Tests and/or Laboratory Data Laboratory Results Test Collection Date/Time Result Date/Time Result Interpretation Reference Range Result Comment Performing Site Cholesterol/HDL Ratio April 25, 2025 8:33am April 252024 8:33am 2.9 3.3 - 4.4 LOW RISK4.4 - 7.1 AVERAGE RISK7.1 - 11.0 MODERATE RISK>11.0 HIGH RISK Anion GapOctohio [facility] hospital 2024 8:33amOct[facility] 2024 8:33am14.8Basophils # (Auto)April 25, 2025 8:33amOctoh[facility] hospital 2024 8:33am0.0 10 3/uL0.0-0.1 Cholesterol LevelOctohio county hospital 2024 8:33amOctober 2024 8:43js084 mg/dL <=200Albumin/Globulin RatioOctohio county hospital 2024 8:33amOctober 2024 8:33am1.1 Basophils (%) (Auto)April 25, 2025 8:33amOctohio county hospital 2024 8:33am0.6 % 0.2-2.0HDL CholesterolOctober 2024 8:33amOctober 2024 8:33am59 mg/dL 40-60> or =60 mg/dl - LOW CARDIOVASCULAR RISK<40 mg/dl - HIGH CARDIOVASCULAR RISKAlbuminOctober 2024 8:33amOctober 2024 8:33am3.9 g/dL3.4-5.0 Eosinophils # (Auto)April 25, 2025 8:33amOctober 2024 8:33am0.1 10 3/uL0.0-0.7LDL Cholesterol, CalculatedOct2024 8:33amOctober 2024 8:17mo071.8 mg/dL<100 mg/dl WQGGTJO523-733 mg/dl NEAR OR ABOVE CGYBCWK712- 159 mg/dl BORDERLINE QFQX570-870 mg/dl HIGH>190 mg/dl VERY HIGHAlkaline PhosphataseOct2024 8:33amOct2024 8:33am57 U/L46-116 Eosinophils (%) (Auto)April 25, 2025 8:33amOctober 2024 8:33am1.5 % 0.9-7.0Triglycerides LevelOct2024 8:33amOctober 2024 8:33am66 mg/dL<=150Alanine Aminotransferase (ALT/SGPT)April 25, 2025 8:33amOct2024 8:33am23 U/S80-53JtdlowslhkZdefbcv 2024 8:33amOct2024 8:33am40.6 %36.0-48.0VLDL CholesterolOctober 2024 8:33amOct2024 8:33am13.2 mg/dLAspartate Amino Transf (AST/SGOT)April 25, 2025 8:33am April 25, 2025 8:33am13 U/LBelow low cunwfh98-90JcvtopxcwoAzxihmu 2024 8:33amOct2024 8:33am13.6 g/dL12.0-16.0BUN/Creatinine RatioOctohio county hospital 2024 8:33amOctober 2024 8:33am15.0Immature Granulocyte # (Auto) April 25, 2025 8:33amOctober 2024 8:33am0.01 10 3/uL0.00-0.03Blood Urea NitrogenOct2024 8:33amOctober 2024 8:33am9.0 mg/dL7.0-18.0 Immature Granulocyte % (Auto)April 25, 2025 8:33amOctober 2024 8:33am 0.1 %0.0-0.5Calcium LevelOctober 2024 8:33amOctober 2024 8:33am8.7 mg/dL8.5-10.1Lymphocytes # (Auto)April 25, 2025 8:33amOctober 2024 8:33am2.4 10 3/uL1.2-3.8Chloride LevelOct2024 8:33amOctober 2024 8:96fy609 mmol/A55-609Qyimfanepht (%) (Auto)April 25, 2025 8:33am April 25, 2025 8:33am35.9 %20.5-60.0Carbon Dioxide LevelOct2024 8:33amOctober 2024 8:33am25.7 mmol/L21.0-32.0Mean Corpuscular Hemoglobin April 25, 2025 8:33amOct2024 8:33am30.5 pg26.7-34.0Creatinine April 25, 2025 8:33amOctober 2024 8:33am0.60 mg/dL0.55-1.02Mean Corpuscular Hemoglobin ConcentOct2024 8:33amOctober 2024 8:33am 33.5 g/dL29.9-35.2Estimated GFR ()April 25, 2025 8:33am April 25, 2025 8:33am>60>=60 mL/min/1.73m 2Mean Corpuscular VolumeOctober 2024 8:33amOctober 2024 8:33am91.0 fL81.0-99.0Estimated GFR (Non- AmericanOctober 2024 8:33amOctober 2024 8:33am>60>=60 mL/min/1.73m 2Monocytes # (Auto)April 25, 2025 8:33amOctober 2024 8:33am0.5 10 3/uL0.3-0.8GlobulinOctober 2024 8:33amOctober 2024 8:33am3.7 g/dLMonocytes (%) (Auto)April 25, 2025 8:33amOctober 2024 8:33am7.2 %1.7-12.0Glucose LevelOctober 2024 8:33amOctober 2024 8:33am92 mg/aH47-408Bknz Platelet VolumeOctober 2024 8:33amOctober 2024 8:33am10.4 fL9.5-13.5Potassium LevelOctober 2024 8:33amOctober 2024 8:33am4.5 mmol/L3.5-5.1Neutrophils # (Auto)April 25, 2025 8:33amOctober 2024 8:33am3.7 10 3/uL1.4-6.5Sodium LevelOctober 2024 8:33amOctober 2024 8:26ea859 mmol/Y554-714Uwycqiafoat (%) (Auto)April 25, 2025 8:33amOctober 2024 8:33am54.7 %43.0-75.0Total BilirubinOctober 2024 8:33amOctober 2024 8:33am0.4 mg/dL0.2-1.0Platelet CountOctober 2024 8:33amOctober 2024 8:12ws772 10 3/gU155-705Niitz ProteinOctober 2024 8:33amOctober 2024 8:33am7.6 g/dL6.4-8.2Red Blood CountOct2024 8:33amOctober 2024 8:33am4.46 10 6/uL4.20-5.40Red Cell Distribution Width April 25, 2025 8:33amOctober 2024 8:33am12.7 %11.0-15.0Corrected White Blood CountOct2024 8:33amOctober 2024 8:33am6.7 10 3/uL4.0-11.0 Vital Signs Vital Reading Result Reference Range Collection Date/Time Height 63 [in_i] April 29, 2025 10:99iuMepecp23.94 kgOctohio county hospital 2024 10:35amBody Pisvowftskc82.1 [degF]97.6-99.0[facility] 2024 10:35amHeart Rate75 /lpi01-284 April 29, 2025 10:35amRespiratory rate18 /ehq14-92[facility] 2024 10:35am Oxygen saturation by Pulse mlgpasxv32 %95-100[facility] 2024 10:35amBP Szlxkvwp741 mm[Hg]100-140Oct2024 10:35amBP Pldptqily59 mm[Hg]60-100 April 29, 2025 10:35amBMI (Body Mass Index)26.9 kg/i0Accgrof 2024 10:35am Advance Directives Advance Directive Response Recorded Date/ Time Advance Directives No May 11, 2017 11:40am Insurance Providers Guarantor Argenis Garcia Address [address] [address]Rammed[employer] Info.Home Phone: Coverage Status Update:2025 Payer Group Member ID Coverage Type Subscriber Relationship to Subscriber Effective Date Expiration Date [employer] [address] [address] [facility] [address] Work Phone: [phone] Shultz Id: [id number] [address] [address] Home Phone: Email: [email or web address] CIFUENTES Id: [id number] Jose Id: [id number] [address] [place] [address] Home Phone: Email: [email or web address] Encounter Location(s) Arrival/Admit Date Discharge/Departure Date Discharge/Departure Disposition Provider(s) Non-patient / Non-visit -[facility] O ctober 2024 8:33am CINDY Chileleparted Physician/Provider Office Visit-[facility] Family Medicine ClsaloeOctbony 2024 10:18amOctober 2024 11:04amDischarged to home care or self care (routine discharge)Yoni Mary MD
--- OUTSIDE RECORDS SUMMARY | 2025-05-06 08:40 | XMS_ITS | Encounter Summary ---
Author Organization [facility] Address [address] [place] [address] Care Team Providers Care Expander Machine Operator Name Role Phone Yoni Mary MD Primary Care Provider [phone] Reason for Visit * ReasonCommentsRepeat Pap Smear Encounter Details DateTypeDepartmentCare Team (Latest Contact Info)Wdwccoppzky77/27/2025 8:40 AM EDTProcedure Visit FRANCISCO Teixeira OBG[facility] [address] [place] [address] Cole Galicia, [address] Trisha Teixeira, [facility]11 Abnormal Papanicolaou smear of cervix with positive human papilloma virus (HPV) test; Breast cancer screening by mammogram; Yeast infection Social History Tobacco UseTypesPacks/DayYears UsedDateSmoking Tobacco: NeverSmokeless Tobacco: NeverCommentsNoSex and Gender InformationValueDate RecordedSex Assigned at BirthNot on fileLegal HmlIiihjo36/15/2023 8:14 PM EDTGender IdentityNot on fileSexual OrientationNot on filedocumented as of this encounter Last Filed Vital Signs Vital SignReadingTime TakenCommentsBlood Lgkbjdis919/8210 8:55 AM EDT Pulse--Temperature--Respiratory Rate--Oxygen Saturation--Inhaled Oxygen Concentration--Zblkpr69.4 kg (148 lb 8 oz)05/06/2025 8:55 AM EDTHeight--Body Mass Index26.311 11:22 AM EDTdocumented in this encounter Plan of Treatment DateTypeDepartmentCare Team (Latest Contact Info)Jtarcxqefsh37/04/2026 8:40 AM EDTProcedure Visit NOMBernadette Teixeira OBGYN [address] [place] [id number] Cole Galicia DO [address] [place] [address] NameTypePriorityAssociated DiagnosesOrder ScheduleTHIN PREP TIS PAP AND HR HPV DNAPathology and CytologyRoutine Abnormal Papanicolaou smear of cervix with positive human papilloma virus (HPV) test Ordered: 5Bilateral screening mammogramImagingRoutine Breast cancer screening by mammogram Expected: 05/06/2025 (Approximate), Expires: 07/06/2026documented as of this encounter Visit Diagnoses Diagnosis Abnormal Papanicolaou smear of cervix with positive human papilloma virus (HPV) test Breast cancer screening by mammogram Yeast infection documented in this encounter Care Teams Team MemberRelationshipSpecialtyStart DateEnd Date Yoni Mary MD PCP - GeneralFamily Cmhtekne91/8/24documented as of this encounter
--- OUTSIDE RECORDS SUMMARY | 2025-05-06 12:17 | XMS_ITS | Encounter Summary ---
Author Organization [facility] Address [address] [place] [address] [place] [address] Care Team Providers Care Hand Worker Name Role Phone Yoni Mary MD Primary Care Provider [phone] Encounter Details DateTypeDepartmentCare Team (Latest Contact Info)Sstmyrfzmci43/27/2025amboo flowsheet NOMBernadette MCNAIR [address] [place] [address] [place] [address] Cole Galicia DO [address] [place] [address] Dr Trisha Teixeira, [facility]11 Social History Tobacco UseTypesPacks/DayYears UsedDateSmoking Tobacco: NeverSmokeless Tobacco: NeverCommentsNoSex and Gender InformationValueDate RecordedSex Assigned at BirthNot on fileLegal PevSpkpti07/15/2023 8:14 PM EDTGender IdentityNot on fileSexual OrientationNot on filedocumented as of this encounter Plan of Treatment DateTypeDepartselect specialty hospitalCare Team (Latest Contact Info)Jnjswgponkn66/04/2026 8:40 AM EDTProcedure Visit NOMBernadette MCNAIR [address] [place] [address] Cole Galicia DO [address] Trisha Teixeira, [facility]11 documented as of this encounter Visit Diagnoses Not on filedocumented in this encounter Care Teams Team MemberRelationshipSpecialtyStart DateEnd Date Yoni Mary MD PCP - GeneralFamily Swcflykv71/8/24documented as of this encounter
--- OUTSIDE RECORDS SUMMARY | 2025-05-06 12:17 | XMS_ITS | Clinical Summary ---
Author Organization [facility] Address [facility] [place] [address] Care Team Providers Care Boat Tester Name Role Phone Unavailable Primary Care Provider Unavailabl e Social History Tobacco UseTypesPacks/DayYears UsedDateSmoking Tobacco: Never Assessed CommentsUnknownSex and Gender InformationValueDate RecordedSex Assigned at Not on fileLegal XitMhlcot73/02/2012 5:26 PM ESTGender IdentityNot on fileSexual OrientationNot on file Plan of Treatment Health MaintenanceDue DateLast DoneCommentsAnxiety Fxvlodryg43/28/2002Depression Gbgjxbbdc99/28/2002HIV Tfwqyxvpw15/28/2002Hepatitis C Ffmyqgtko79/28/2002 DTaP,Tdap,Td Vaccine (1 - Tdap)2003Hepatitis B Vaccine (1 of 3 - 19+ 3- dose series)2003Cervical Cancer Makgkcnpi69/28/2005HPV Vaccine (1 - 3-dose SCDM series)2011Mammogram Tmhlqasme89/28/2024Covid-19 Vaccine (2024- season)2025Influenza Vaccine (#1)2025
--- OUTSIDE RECORDS SUMMARY | 2025-05-06 12:17 | XMS_ITS | Clinical Summary ---
Author Organization [facility] Address [address] [place] [address] Care Team Providers Care Language Path Name Role Phone Yoni Mary MD Primary Care Provider [phone] Allergies Active AllergyReactionsCriticalityNoted DateCommentsSulfa AntibioticsNausea And CjfwpiphZadf70/02/2019 Medications MedicationSigDispense QuantityRefillsLast FilledStart DateEnd DateStatus cyclobenzaprine (Flexeril) 10 MG tablet Indications:Neck muscle spasmTake 1 tablet (10 mg) by mouth 3 (three) times a day as needed for muscle spasms 30 tablet 4Active fluconazole (Diflucan) 150 MG tablet Indications:Yeast infectionTake 1 tablet (150 mg) by mouth every 3rd (third) day for 2 doses 2 tablet 5Active Active Problems ProblemNoted DateDiagnosed DateAnnual physical exam04/18/2024 Assessment & Plan (04/18/2024 11:43 AM EDT): Due for labs. Will need mammogram in June. Discussed proper diet and regular aerobic exercise. Need aerobic exercise 5-6 days a week for 30 minutes at a time. Smaller portions and limit total calories. Colonoscopy after age 45. Tetanus every 10 years. Advised not to smoke. Mild intermittent asthma without /09/2024Neck muscle spasm 04/18/2024 Assessment & Plan (04/18/2024 11:44 AM EDT): Recent pain and spasms. Treat with prednisone. Use flexeril and heat PRN. Start ROM exercises. Encounters DateTypeDepartmentCare GvvkQzmjnlaazwt82/27/2025 8:40 AM EDTProcedure Visit [facility] [address] [facility] [place] [address] Cole Galicia DO Abnormal Papanicolaou smear of cervix with positive human papilloma virus (HPV) test; Breast cancer screening by mammogram; Yeast /27/2025amboo flowsheet [facility] [address] [place] [address] [place] [address] Cole Galicia DO from Last 3 Months Social History Tobacco UseTypesPacks/DayYears UsedDateSmoking Tobacco: NeverSmokeless Tobacco: Never Tobacco Cessation:Counseling Given: Not Answered CommentsNoSex and Gender InformationValueDate RecordedSex Assigned at BirthNot on fileLegal UgkNbfzht47/15/2023 8:14 PM EDTGender IdentityNot on file Sexual OrientationNot on file Last Filed Vital Signs Vital SignReadingTime TakenCommentsBlood Qfwxwffj331/8205/06/2025 8:55 AM EDT Vbcrr32589/09/2024 11:22 AM TJMWxyqqqmakhw28.4 ??C (97.5 ??F)04/18/2024 11:22 AM EDTRespiratory Qqki3784 11:22 AM EDTOxygen Ybldhtmtac20%04/18/2024 11:22 AM EDTInhaled Oxygen Concentration--Cjlctl31.4 kg (148 lb 8 oz)05/06/2025 8:55 AM PUARgpycc517 cm (5' 3 )04/18/2024 11:22 AM EDTBody Mass Index26.311 11:22 AM EDT Plan of Treatment DateTypeDepartmentCare Team (Latest Contact Info)Ozmregscbwv18/04/2026 8:40 AM EDTProcedure Visit FRANCISCO [facility] [address] [place] [address] [place] [address] Cole Galicia DO [address] [facility] [place] [address] Insurance * Guarantor: Jose, EricaAccount TypeRelation to PatientDate of BirthPhone Billing AddressPersonal/WydnmsGmjq1985 [address] [address] Care Teams Team MemberRelationshipSpecialtyStart DateEnd Date Yoni Mary MD PCP - GeneralFamily Qthlrpfo10/8/24
== END 2025-05-06 12:14 | disposition home or self-care (01) ==
LOC: LAB 12:13
PROVIDERS: PCP Family Medicine; Visit Provider Physician Assistant
DX: R87.618 Other abnormal cytological findings on specimens from cervix uteri (principal)
CPT/HCPCS: 87624; 88175

== ENCOUNTER 2025-05-30 14:33 | Outpatient (REF) | payer BC, SELFPAY ==
--- OUTSIDE RECORDS SUMMARY | 2025-05-30 09:30 | XMS_ITS | Encounter Summary ---
Author Organization [facility] Address [address] [facility] [place] [address] Care Team Providers Care Machine Operator Cane Cutter Name Role Phone Yoni Mary MD Primary Care Provider [phone] Reason for Visit * ReasonCommentsColposcopy Encounter Details DateTypeDepartmentCare Team (Latest Contact Info)Rqaylfokjcj98/20/2025 9:30 AM ESTProcedure Visit [facility] [address] [facility] [address] Cole Galicia DO [address] [facility] [address] [place], [facility]11 Human papillomavirus (HPV) type 18 DNA detected in cervical specimen Social History Tobacco UseTypesPacks/DayYears UsedDateSmoking Tobacco: NeverSmokeless Tobacco: NeverCommentsNoSex and Gender InformationValueDate RecordedSex Assigned at BirthNot on fileLegal InjGpzjkq19/15/2023 8:14 PM EDTGender IdentityNot on fileSexual OrientationNot on filedocumented as of this encounter Last Filed Vital Signs Vital SignReadingTime TakenCommentsBlood Odyzukbq711/8205/30/2025 9:31 AM EST Pulse--Temperature--Respiratory Rate--Oxygen Saturation--Inhaled Oxygen Concentration--Suuocx56.4 kg (150 lb 12 oz)05/30/2025 9:31 AM ESTHeight--Body Mass Index26.710/03/2024 11:22 AM EDTdocumented in this encounter Progress Notes * Cammie Guerrero LPN - 05/30/2025 9:30 AM ESTAssociated Order(s): Colposcopy Post-Procedure Diagnose(s): Human papillomavirus (HPV) type 18 DNA detected in cervical specimen Reason for Appointment: Patient ID: Argenis Garcia is a 40 y.o. female who presents for Colposcopy Patient presents today for a Colposcopy appointment. MEDICATIONS No current outpatient medications ALLERGIES Allergies Allergen Reactions Sulfa Antibiotics Nausea And Vomiting PROBLEMS Active Ambulatory Problems Diagnosis Date Noted Annual physical exam 04/18/2024 Mild intermittent asthma without complication (HCC) 04/18/2024 Neck muscle spasm 04/18/2024 Resolved Ambulatory Problems Diagnosis Date Noted No Resolved Ambulatory Problems No Additional Past Medical History HISTORY PAST MEDICAL HISTORY SOCIAL HISTORY No past medical history on file. Social History Tobacco Use Smoking status: Never Smokeless tobacco: Never Substance Use Topics Alcohol use: Not on file Drug use: Not on file FAMILY HISTORY No family history on file. SURGICAL HISTORY Past Surgical History: Procedure Laterality Date HERNIA REPAIR ROTATOR CUFF REPAIR Right TONSILLECTOMY REVIEW OF SYSTEMS Review of Systems: Review of Systems Constitutional: Negative. HENT: Negative. Eyes: Negative. Respiratory: Negative. Cardiovascular: Negative. Gastrointestinal: Negative. Genitourinary: Negative. Musculoskeletal: Negative. Skin: Negative. Neurological: Negative. All other systems reviewed and are negative. Hematological: Negative. Endocrine: Negative. Allergic/Immunologic: Negative. OBJECTIVE Objective: Physical Exam Constitutional: Appearance: Normal appearance. She is well-developed. Genitourinary: Vulva normal. Right Adnexa: not tender and no mass present. Left Adnexa: not tender and no mass present. No cervical discharge. Breasts: Breasts are soft. Right: Normal. Left: Normal. HENT: Head: Normocephalic. Nose: Nose normal. Mouth/Throat: Mouth: Mucous membranes are moist. Cardiovascular: Rate and Rhythm: Normal rate and regular rhythm. Pulmonary: Effort: Pulmonary effort is normal. Breath sounds: Normal breath sounds. Abdominal: General: Bowel sounds are normal. There is no distension. Palpations: Abdomen is soft. Tenderness: There is no abdominal tenderness. There is no guarding or rebound. Musculoskeletal: General: No swelling. Normal range of motion. Cervical back: Normal range of motion. Right lower leg: No edema. Left lower leg: No edema. Neurological: General: No focal deficit present. Mental Status: She is alert and oriented to person, place, and time. Skin: General: Skin is warm and dry. Psychiatric: Mood and Affect: Mood normal. Behavior: Behavior normal. Vitals and nursing note reviewed. Exam conducted with a business management consultant present. Vitals: Estimated body mass index is 26.7 kg/m?? as calculated from the following: Height as of 04/18/24: 5' 3 . Weight as of this encounter: 150 lb 12 oz. BP: 128/82 No LMP recorded (lmp unknown). (Menstrual status: IUD). ASSESSMENT & PLAN Encounter Diagnosis: ICD-10-CM 1. Human papillomavirus (HPV) type 18 DNA detected in cervical specimen R87.810 POCT , urine manually resulted Colposcopy Colposcopy Colposcopy Date/Time: 05/30/2025 10:04 AM Performed by: Cole Galicia DO Authorized by: Cole Galicia DO Procedure location: cervix Consent: Patient questions answered: yes Risks and benefits of the procedure and its alternatives discussed: yes Consent obtained: Written Consent given by: Patient Pre-procedure: Speculum was placed in the vagina: yes Prep solution(s): acetic acid and Betadine Procedure: Colposcopy with: endocervical curettage Cervix visibility: fully visualized Ferric subsulfate solution applied: no Tampon inserted: no Post-procedure: Patient tolerance of procedure: Patient tolerated the procedure well with no immediate complications Instructions and paperwork completed: yes Educational handouts given: no Assessment/Plan Colposcopy: Patient is doing well and has no complaints. Pap results have been reviewed with the patient in great detail and patient voiced understanding. Patient presents today for a Colposcopy with ECC. Patient was placed in dorsal lithotomy position with feet in stirrups, a sterile speculum was placed into the vagina and the cervix was visualized. Cervix was cleansed with vinegar. Postprocedural instructions given. All if patients questions answered and she expressed understanding. Advised to call in interim with questions or concerns. Follow Up: Patient is to return in 6 months for Repeat Pap. Documented by Cammie Guerrero LPN on behalf of: Cole Galicia DO documented in this encounter Plan of Treatment DateTypeDepartmentCare Team (Latest Contact Info)Kftejertogz83/21/2026 11:00 AM EDTProcedure Visit [facility]et [facility] [address] [facility] [place] [id number] Cole Galicia DO [address] [facility] [address] [place], [place] [id number] NameTypePriorityAssociated DiagnosesOrder ScheduleColposcopyProceduresRoutine Human papillomavirus (HPV) type 18 DNA detected in cervical specimen Expected: 05/30/2025 (Approximate), Expires: 05/30/2026documented as of this encounter Procedures Procedure NamePriorityDate/TimeAssociated DiagnosisCommentsCOLPOSCOPYRoutine 05/30/2025 10:04 AM EST Human papillomavirus (HPV) type 18 DNA detected in cervical specimen POCT , PCCIYAtkmvri79/20/2025 9:37 AM EST Human papillomavirus (HPV) type 18 DNA detected in cervical specimen PAP TEST, WTCFJYFCEqfjxtv85/27/2025 12:00 AM EDTdocumented in this encounter Results * Colposcopy (05/30/2025 10:04 AM EST) Narrative Victorina Penn LPN - 05/30/2025 10:04 AM EST Victorina Penn LPN 06/05/2025 10:06 AM Colposcopy Date/Time: 05/30/2025 10:04 AM Performed by: Cole Galicia DO Authorized by: Cole Galicia DO ?? Procedure location: cervix ?? Consent: ??Patient questions answered: yes ?Risks and benefits of the procedure and its alternatives discussed: yes ?Consent obtained: ??Written ??Consent given by: ??Patient Pre-procedure: ??Speculum was placed in the vagina: yes ?Prep solution(s): acetic acid and Betadine ?? Procedure: ??Colposcopy with: endocervical curettage ?Cervix visibility: fully visualized ?Ferric subsulfate solution applied: no ?Tampon inserted: no ?? Post-procedure: ??Patient tolerance of procedure: ??Patient tolerated the procedure well with no immediate complications ??Instructions and paperwork completed: yes ?Educational handouts given: no ?? Authorizing ProviderResult TypeResult StatusCorey Grayson DOIN CLINIC/BEDSIDE ORDERABLESFinal Result * POCT , urine manually resulted (05/30/2025 9:37 AM EST)ComponentValue Ref RangeTest MethodAnalysis TimePerformed AtPathologist SignaturePreg Test, UrNegativeNegativeSpecimen (Source)Anatomical Location / LateralityCollection Method / VolumeCollection TimeReceived XvntVqtri74/20/2025 9:37 AM EST Narrative Authorizing ProviderResult TypeResult StatusCorey Grayson DOPOINT OF CARE TEST ENTER/EDIT ORDERABLESFinal Result [...] DateEnd Date Yoni Mary MD [address] [place] [address] PCP - GeneralFamily Tdkrgeyd09/8/24documented as of this encounter
--- OUTSIDE RECORDS SUMMARY | 2025-05-31 19:24 | XMS_ITS | Continuity of Care Document ---
Author Organization [facility] Address [address] [place] [address] Phone Care Team Providers Care Visual Effects Artist Name Role Phone Yoni Mary MD Primary Care Provider Yoni Mary MD Attending Provider Zara Ren PA-C Attending Provider Unavailable Cole Galicia DO Attending Provider Care Teams Visit Care Team Team Status: Active Member Role/Relationship Status Dates Yoni Mary MD Primary Care Provider Active S tart: April 25, 2025 Ham Chilel ProviderActiveStart: April 25, 2025 Visit Care Team Team Status: Inactive Member Role/Relationship Status Dates Yoni Mary MD Primary Care Provider Active S tart: April 29, 2025 End: April 29, 2025Ham Chilel ProviderActiveStart: April 29, 2025 End: April 29, 2025 Visit Care Team Team Status: Active Member Role/Relationship Status Dates Yoni Mary MD Primary Care Provider Active S tart: May 06, 2025 Shon Aggarwal ProviderActiveStart: May 06, 2025 Patient Care Team Team Status: Inactive Member Role/Relationship Status Dates Cole Galicia DO Attending Provider Active Start : May 30, 2025 End: May 30, 2025 Chief Complaint and Reason for Visit Chief Complaint Admit Date Annual Wellness April 29, 2025 1 0:18am Reason for Visit Admit Date Annual physical exam April 29, 2025 10:18am Allergies, Adverse Reactions, Alerts Allergen Type Severity Reaction Last Updated Verified Status Sulfa (Sulfonamide Antibiotics) Allergy Unknown Nausea, stomach upset April 29, 2025 9:36am Yes Active Social History Smoking Status Status Start Date End Date Date of Observa tion Never smoked tobacco (finding) May 19, 2023 4:29pm Observation Status Observation Response Date of Response Legal Sex [facility] ([facility]) [facility] Family History Relationship Condition Age at Onset Recorded Date/T aleksandr family member Family history of other condition Unknow n Problems Active Problems Problem Diagnosis/Recorded Date Onset Date Status C omments Right upper quadrant abdomin al pain April 24, 2025 2:31pm Unknown Active Antral gastritisOctober 2024 2:31pmUnknownActiveMild intermittent asthma without complicationOctober 2024 2:30pmUnknownActiveNeck muscle spasm April 24, 2025 2:30pmUnknownActiveAnnual physical examOctober 2024 3:43pmUnknownActiveSeasonal allergic rhinitis due to pollenOctober 2024 2:31pmUnknownActiveGERD (gastroesophageal reflux disease)April 24, 2025 2:31pmUnknownActiveHiatal herniaOctober 2024 2:31pmUnknownActive Inactive/Resolved Problems Problem Diagnosis/Recorded Date Onset Date Status C omments Arm paresthesia, left October 28, 2017 3:30pm Unknown Resolved Problem List clean-up per request of Phys. EHR Cmte Medications Medication Status Dose Units Route Directions Qty Days Refills S tart Date Stop Date End Date Reason(s) Instructions Adherence Cyclobenzaprine 10 mg tablet Discontinued 10 MG PO Three times daily as needed for muscle spasm 20 0April 2017 11:00pmOctober 2024 9:36am Relevant Diagnostic Tests and/or Laboratory Data Laboratory Results Test Collection Date/Time Result Date/Time Result Interpretation Reference Range Result Comment Performing Site Cholesterol/HDL Ratio April 25, 2025 7:33am April 252024 7:33am 2.9 3.3 - 4.4 LOW RISK4.4 - 7.1 AVERAGE RISK7.1 - 11.0 MODERATE RISK>11.0 HIGH RISK Anion GapOctober 2024 7:33amOctober 2024 7:33am14.8Basophils # (Auto)April 25, 2025 7:33amOct2024 7:33am0.0 10 3/uL0.0-0.1 Reference Lab Test Patient AgeOct2024 7:44amOct2024 7:44am Note.TESTS RESULT FLAG UNITS REF RANGE LAB Clinician Provided Cytology Information Source.............Cervix;Endocervix No. of containers..01 ThinPrep VialAge Yeimi NOVOA Orin... FLAG LEGEND: L- Low Normal,H-High Normal,LL-Alert Low,HH-Alert High <-Panic Low,>-Panic High,A -Abnormal,AA-Critical Abnormal Performed at:[address] [facility] [address] [place] [address] Antionette Borwn MD, Apjidatekma LevelOct2024 7:33amOct2024 7:20ej218 mg/dL<=200Albumin/Globulin RatioApril 25, 2025 7:33am April 25, 2025 7:33am1.1Basophils (%) (Auto)April 25, 2025 7:33amOct2024 7:33am0.6 %0.2-2.0HPV High Risk Other CommentMay 06, 2025 7:44amOctober 2024 7:44amNoteAbnormal (applies to non-numeric results). TESTS RESULT FLAG UNITS REF RANGE LAB DIAGNOSIS: [A] 02 EPITHELIAL CELL ABNORMALITY. ATYPICAL SQUAMOUS CELLS OF UNDETERMINED SIGNIFICANCE (ASC-US). FUNGAL ORGANISMS MORPHOLOGICALLY CONSISTENT WITH MICHELLE SPECIES ARE PRESENT.Specimen adequacy: 02 Satisfactory for evaluation. Endocervical and/or squamous metaplastic cells (endocervical component) are present.Performed by: 02 Mila Christiansen, Police Superintendent (ASCP)Electronically si... 02 Susy Gaston MD, Pathologist. 02Pathologist ICD10: 02 R87.610, R87.5Note: Note 02 The Pap smear is a screening test designed to aid in the detection of premalignant and malignant conditions of the uterine cervix. It is not a diagnostic procedure and should not be used as the sole means of detecting ce rvical cancer. Both false-positive and false-negative reports do occur.Test Methodology: Note 02 This liquid based ThinPrep(R) pap test was interpreted using the basico.com(R) Newtopia(TM) Cervical Algorithm whole slide imaging system.HPV Genotype Reflex Note 02 Criteria not met, HPV Genotype not perform ed. FLAG LEGEND: L- Low Normal,H-High Normal,LL-Alert Low,HH-Alert High <-Panic Low,>-Panic High,A-Abnormal,AA-Critical Abnormal------- Performed at:[address] [facility] [place] [address] Antionette Brown MD, OPR CholesterolOctober 2024 7:33amOctober 2024 7:33am59 mg/dL40-60> or =60 mg/dl - LOW CARDIOVASCULAR RISK<40 mg/dl - HIGH CARDIOVASCULAR RISKAlbuminOctober 2024 7:33amOctober 2024 7:33am3.9 g/dL3.4-5.0Eosinophils # (Auto)April 25, 2025 7:33amOctober 2024 7:33am0.1 10 3/uL0.0-0.7HPV Genotype SourceOctlexington [facility] 2024 7:44amOctlexington shriners hospital 2024 7:44amPositiveAbnormal (applies to non-numeric results)NegativeThis nucleic acid amplification test detects fourteen high-risk HPV types (16,18,31,33,35,39,45,51,52,56,58,59,66,68)without differentiation.Performed at: =[address] [id number] Director: Antionette Brown MD, Phone: [phone] at: [address] [id number] Director: Antionette Brown MD, Phone: [phone] Cholesterol, CalculatedOctober 2024 7:33amOctlexington shriners hospital 2024 7:05ov694.8 mg/dL<100 mg/dl EXQNZQE740-577 mg/dl NEAR OR ABOVE NQSTUZK032-257 mg/dl BORDERLINE THFL926-175 mg/dl HIGH>190 mg/dl VERY HIGHAlkaline Phosphatase April 25, 2025 7:33amOctober 2024 7:33am57 U/W95-887Rwmezocxwaa (%) (Auto)April 25, 2025 7:33amOctober 2024 7:33am1.5 %0.9-7.0 Triglycerides LevelOctober 2024 7:33amOctober 2024 7:33am66 mg/dL <=150Alanine Aminotransferase (ALT/SGPT)April 25, 2025 7:33amOct2024 7:33am23 U/U06-09QgfyjiqmqsKlhjyrn 2024 7:33amOctober 2024 7:33am40.6 %36.0-48.0VLDL CholesterolOct2024 7:33amOctober 2024 7:33am13.2 mg/dLAspartate Amino Transf (AST/SGOT)April 25, 2025 7:33am April 25, 2025 7:33am13 U/LBelow low -70EdnjvkngedUgpbwap 16th, 2025 7:33amOct2024 7:33am13.6 g/dL12.0-16.0BUN/Creatinine RatioOct2024 7:33amOctober 2024 7:33am15.0Immature Granulocyte # (Auto) April 25, 2025 7:33amOctober 2024 7:33am0.01 10 3/uL0.00-0.03Blood Urea NitrogenOct2024 7:33amOctober 2024 7:33am9.0 mg/dL7.0-18.0 Immature Granulocyte % (Auto)April 25, 2025 7:33amOctober 2024 7:33am 0.1 %0.0-0.5Calcium LevelOctober 2024 7:33amOctober 2024 7:33am8.7 mg/dL8.5-10.1Lymphocytes # (Auto)April 25, 2025 7:33amOctober 2024 7:33am2.4 10 3/uL1.2-3.8Chloride LevelOct2024 7:33amOctober 2024 7:92bo151 mmol/C12-984Scdxgrpezxg (%) (Auto)April 25, 2025 7:33am April 25, 2025 7:33am35.9 %20.5-60.0Carbon Dioxide LevelOctober 2024 7:33amOct2024 7:33am25.7 mmol/L21.0-32.0Mean Corpuscular Hemoglobin April 25, 2025 7:33amOctober 2024 7:33am30.5 pg26.7-34.0Creatinine April 25, 2025 7:33amOctober 2024 7:33am0.60 mg/dL0.55-1.02Mean Corpuscular Hemoglobin ConcentOct2024 7:33amOctober 2024 7:33am 33.5 g/dL29.9-35.2Estimated GFR ()April 25, 2025 7:33am April 25, 2025 7:33am>60>=60 mL/min/1.73m 2Mean Corpuscular VolumeOct2024 7:33amOctober 2024 7:33am91.0 fL81.0-99.0Estimated GFR (Non- AmericanOct2024 7:33amOctober 2024 7:33am>60>=60 mL/min/1.73m 2Monocytes # (Auto)April 25, 2025 7:33amOctober 2024 7:33am0.5 10 3/uL0.3-0.8GlobulinApril 25, 2025 7:33amOctober 2024 7:33am3.7 g/dLMonocytes (%) (Auto)April 25, 2025 7:33amOctober 2024 7:33am7.2 %1.7-12.0Glucose LevelOct2024 7:33amOctober 2024 7:33am92 mg/dU69-632Ltiu Platelet VolumeOct2024 7:33amOctober 2024 7:33am10.4 fL9.5-13.5Potassium LevelOct2024 7:33amOctober 2024 7:33am4.5 mmol/L3.5-5.1Neutrophils # (Auto)April 25, 2025 7:33amOctober 2024 7:33am3.7 10 3/uL1.4-6.5Sodium LevelOct2024 7:33amOctober 2024 7:21zp544 mmol/O311-410Ajpddxojmvi (%) (Auto)April 25, 2025 7:33amOctober 2024 7:33am54.7 %43.0-75.0Total BilirubinOctober 2024 7:33amOctober 2024 7:33am0.4 mg/dL0.2-1.0Platelet CountOctober 2024 7:33amOctober 2024 7:10cw250 10 3/eJ839-371Yleqd ProteinOctober 2024 7:33amOctober 2024 7:33am7.6 g/dL6.4-8.2Red Blood CountOctober 2024 7:33amOctober 2024 7:33am4.46 10 6/uL4.20-5.40Red Cell Distribution Width April 25, 2025 7:33amOctober 2024 7:33am12.7 %11.0-15.0Corrected White Blood CountOctober 2024 7:33amOctober 2024 7:33am6.7 10 3/uL 4.0-11.0 Vital Signs Vital Reading Result Reference Range Collection Date/Time Height 63 [in_i] April 29, 2025 9:08jwXwpnpj84.94 kgApril 29, 2025 9:35amBody Temperature 97.1 [degF]97.6-99.0April 29, 2025 9:35amHeart Rate75 /pdx11-774ZfuhkfsApril 29, 2025 9:35amRespiratory rate18 /ssz24-35Ydjkddl 20th, 2025 9:35amOxygen saturation by Pulse fhctrazb62 %95-100April 29, 2025 9:35amBP Tllfsjni705 mm[Hg]100-140Oct2024 9:35amBP Xyubmxbgl17 mm[Hg]60-100Oct2024 9:35amBMI (Body Mass Index)26.9 kg/e1Jvedyky 20th, 2025 9:35am Advance Directives Advance Directive Response Recorded Date/ Time Advance Directives No May 11, 2017 10:40am Insurance Providers Guarantor Argenis Zavalaultz Address [address] [address]Mhntnqx Info.Home Phone: Coverage Status Update:2025 Payer Group Member ID Coverage Type Subscriber Relationship to Subscriber Effective Date Expiration Date [employer] [address] [address] [facility] [address] Work Phone: [phone] Jose Id: [id number] [address] [facility] [address] Home Phone: Email: [email or web address] CIFUENTES Id: [id number] Jose Id: [id number] [address] [facility] [address] Home Phone: Email: [email or web address] Encounters Encounter Location(s) Arrival/Admit Date Discharge/Departure Date Discharge/Departure Disposition Provider(s) Non-patient / Non-visit -[facility] O ctober 2024 8:33am CINDY Chileleparted Physician/Provider Office Visit-[facility] 2024 10:18amOctober 2024 11:04amDischarged to home care or self care (routine discharge)Danyel Chilel-patient / Pxu-ogzzs-[facility]October 2024 8:44amAODETTE Prakasheparted Referred- Lab [facility] 2024 9:25amNovember 2024 9:26amDischarged to home care or self care (routine discharge)Cole Galicia Recent Diagnosis Onset Date Admit Date Annual physical exam Unknown April 10:18am Assessments Diagnosis Onset Date Resolution Status Admit Date Annual physical exam acuteOctober 2024 10:18am Plan of Treatment Author Yoni Mary [facility] 2024 10:09amReviewed labs. Discussed proper diet and regular aerobic exercise.?? Need aerobic exercise 5-6 days a week for 30 minutes at a time.?? Smaller portions and limit total calories.?? Colonoscopy after age 45.?? Tetanus every 10 years.?? Advised not to smoke.?? Future Tests Future scheduled test information is unavailable Pending Tests Pending diagnostic test information is unavailable Future Visits Future appointment information is unavailable Future Procedures Future procedure information is unavailable Future Medications Future medication information is unavailable Patient Instructions Patient instructions are unavailable
--- OUTSIDE RECORDS SUMMARY | 2025-06-05 14:36 | XMS_ITS | Encounter Summary ---
Author Organization [facility] Address [address] [facility] [place] [place] [address] Care Team Providers Care Robotics Testing Technician Name Role Phone Yoni Mary MD Primary Care Provider [phone] Encounter Details DateTypeDepartmentCare Team (Latest Contact Info)Bphyyjvufwz27/21/2025linisync Result Encounter [facility] Unsolicited Lisa Galicia [address] [place], [place] [address] Social History Tobacco UseTypesPacks/DayYears UsedDateSmoking Tobacco: NeverSmokeless Tobacco: NeverCommentsNoSex and Gender InformationValueDate RecordedSex Assigned at BirthNot on fileLegal IekFulsuz15/15/2023 8:14 PM EDTGender IdentityNot on fileSexual OrientationNot on filedocumented as of this encounter Plan of Treatment DateTypeDepartmentCare Team (Latest Contact Info)Krjyntpuacv17/21/2026 11:00 AM EDTProcedure Visit [facility] [address] [id number] Lisa Galicia DO [address] [place] [address] documented as of this encounter Procedures Procedure NamePriorityDate/TimeAssociated DiagnosisCommentsMM TOMOSYNTHESIS SCREENING BI05/31/2025 4:03 PM EST documented in this encounter Results * MM TOMOSYNTHESIS SCREENING BI (05/31/2025 4:03 PM EST)Anatomical Region LateralityModalityOtherSpecimen (Source)Anatomical Location / Laterality Collection Method / VolumeCollection TimeReceived Time05/31/2025 4:03 PM EST Narrative 05/31/2025 4:04 PM EST [facility] ?[address] ? [place], [facility] ? Mammography Report ? Signed ? Patient: ELLI MCGARRY R ?MR#: [id number] ?? : 1985 ?Acct:[id number] ?? Age/Sex: 40 / F ?ADM Date: 05/31/25 ?? Loc: MAMMO ? Attending Dr: Lisa Galicia D.O. ? Ordering Physician: Lisa Galicia D.O. ?Results: ? Date of Service: 05/31/25 ?Follow Up: ? Procedure(s): MM tomosynthesis screening BI ?? Accession Number(s): [id number] ? cc: Lisa Galicia D.O.; Yoni Mary M.D. ? Patient Name: ? ELLI MCGARRY ? MR#: [id number] ? : 1985 ? Exam Date: 05/31/2025 ?? Ordering Doctor: DR LISA GALICIA . ? RADIOLOGY REPORT ? PROCEDURE: ? MM TOMOSYNTHESIS SCREENING BI ? COMPARISON: ? MM TOMOSYNTHESIS SCREENING BI, 05/30/2024. ??MM TOMOSYNTHESIS ?? DIAGNOSTIC BI, 06/08/2023. ??MG MAMM ANNI DIAG W CAD, 07/18/2019. ? INDICATIONS: ? Screening ? Calculator Name ? NCI Breast Cancer Risk Assessment Tool ?? 5 Year Breast Cancer Risk ? Not Reported. ?? Lifetime Breast Cancer Risk ? Not Reported. ?? Personal Breast Cancer ?No ?? Personal Ovarian Cancer ? No ?? Treatments ? None ?? Family Cancers ? None ? LOCATION: ? [facility] ? BREAST COMPOSITION: ? The breasts are extremely dense, which lowers the ?? sensitivity of mammography. ? FINDINGS: ? RIGHT BREAST: ??No significant suspicious finding. ??There is a biopsy clip on ?? the right. ? LEFT BREAST: ??No significant suspicious finding. ??Similar focal asymmetries ?? are present. ??Benign-appearing calcifications are present. ? DIAGNOSTIC CATEGORY 2--BENIGN FINDING. NO CHANGE FROM COMPARISON. ? RECOMMENDATIONS: ? ROUTINE MAMMOGRAM AND CLINICAL EVALUATION IN 12 MONTHS. ? Dictated by: Michael May MD on 05/31/2025 at 15:59 ? Approved by: Michael May MD on 05/31/2025 at 16:03 ? Dictated By: ?Michael May M.D. ? Signed By: ?05/31/25 1604 ? DD/ 1603 ? TD/TT: ? State Auditor: Procedure Note Radiology, Radiologist, MD - 05/31/2025 [place] [address] Mammography Report Signed Patient: ELLI MCGARRY RMR#: [id number] : 1985Acct:[id number] Age/Sex: 40 / FADM Date: 05/31/25 Loc: MAMMO Attending Dr: Lisa Galicia D.O. Ordering Physician: Lisa Galicia D.O.Results: Date of Service: 05/31/25Follow Up: Procedure(s): MM tomosynthesis screening BI Accession Number(s): [id number] cc: Lisa Galicia D.O.; Yoni Mary M.D. Patient Name: ELLI MCGARRY MR#: [id number] : 1985 Exam Date: 05/31/2025 Ordering Doctor: DR LISA GALICIA . RADIOLOGY REPORT PROCEDURE: MM TOMOSYNTHESIS SCREENING BI COMPARISON: MM TOMOSYNTHESIS SCREENING BI, 05/30/2024. MMTOMOSYNTHESIS DIAGNOSTIC BI, 06/08/2023. MG MAMM ANNI DIAG W CAD, 07/18/2019. INDICATIONS: Screening Calculator Name NCI Breast Cancer Risk Assessment Tool 5 Year Breast Cancer Risk Not Reported. Lifetime Breast Cancer Risk Not Reported. Personal Breast Cancer No Personal Ovarian Cancer No Treatments None Family Cancers None LOCATION: [facility] BREAST COMPOSITION: The breasts are extremely dense, which lowers the sensitivity of mammography. FINDINGS: RIGHT BREAST: No significant suspicious finding. There is a biopsy clipon the right. LEFT BREAST: No significant suspicious finding. Similar focalasymmetries are present. Benign-appearing calcifications are present. DIAGNOSTIC CATEGORY 2--BENIGN FINDING. NO CHANGE FROM COMPARISON. RECOMMENDATIONS: ROUTINE MAMMOGRAM AND CLINICAL EVALUATION IN 12 MONTHS. Dictated by: Michael May MD on 05/31/2025 at 15:59 Approved by: Michael May MD on 05/31/2025 at 16:03 Dictated By: Michael May M.D. Signed By:05/31/25 1604 DD/ 1603 TD/TT: State Auditor: Authorizing ProviderResult TypeResult StatusCorecatherine Galicia DOCLINISYNC IMAGINGFinal Result documented in this encounter Visit Diagnoses Not on filedocumented in this encounter Care Teams Team MemberRelationshipSpecialtyStart DateEnd Date Yoni Mary MD [address] [place] [address] PCP - GeneralFamily Gawrzcli84/8/24documented as of this encounter
--- OUTSIDE RECORDS SUMMARY | 2025-06-05 14:36 | XMS_ITS | Clinical Summary ---
Author Organization [facility] Address [facility] [place] [address] Care Team Providers Care Recovery Analyst Name Role Phone Unavailable Primary Care Provider Unavailabl e Social History Tobacco UseTypesPacks/DayYears UsedDateSmoking Tobacco: Never Assessed CommentsUnknownSex and Gender InformationValueDate RecordedSex Assigned at Not on fileLegal ApgNhmmup25/02/2012 5:26 PM ESTGender IdentityNot on fileSexual OrientationNot on file Plan of Treatment Health MaintenanceDue DateLast DoneCommentsAnxiety Ppkgnhwxy89/28/2002Depression Cawbdykyi43/28/2002HIV Xsrpthqyp27/28/2002Hepatitis C Guuorhmir99/28/2002 DTaP,Tdap,Td Vaccine (1 - Tdap)2003Hepatitis B Vaccine (1 of 3 - 19+ 3- dose series)2003Cervical Cancer Jjnegkcau46/28/2005HPV Vaccine (1 - 3-dose SCDM series)2011Mammogram Saqhwafki63/28/2024Covid-19 Vaccine (2024- season)2025Influenza Vaccine (#1)2025
--- OUTSIDE RECORDS SUMMARY | 2025-06-05 14:37 | XMS_ITS | Clinical Summary ---
Author Organization [facility] Address [address] [place] [address] Care Team Providers Care Hospitality Ambassador Name Role Phone Yoni Mary MD Primary Care Provider [phone] Allergies Active AllergyReactionsCriticalityNoted DateCommentsSulfa AntibioticsNausea And IzfdgptqIiom42/02/2019 Medications MedicationSigDispense QuantityRefillsLast FilledStart DateEnd DateStatus cyclobenzaprine [...] not to smoke. Mild intermittent asthma without wtizmpmgwrzh93/09/2024Neck muscle spasm 04/18/2024 Assessment & Plan (04/18/2024 11:44 AM EDT): Recent pain and spasms. Treat with prednisone. Use flexeril and heat PRN. Start ROM exercises. Encounters DateTypeDepartmentCare ZgtwSqnizjmqlxv64/21/2025Clinisync Result Encounter [facility] Unsolicited Lisa Galicia DO 05/30/2025 9:30 AM ESTProcedure Visit [facility] [place] [facility] [address] [place] [address] [place] [address] Lisa Galicia DO Human papillomavirus (HPV) type 18 DNA detected in cervical tkycckov87/20/2025 Abstract [facility] [place] [facility] [address] [place] [address] [place] [address] Lisa Galicia DO 05/06/2025 8:40 AM EDTProcedure Visit [facility] [place] [facility] [address] [place] [address] [place] [address] Lisa Galicia DO Abnormal Papanicolaou smear of cervix with positive human papilloma virus (HPV) test; Breast cancer screening by mammogram; Yeast /27/2025linisync Result Encounter [facility] External Department Unsolicited Zara Ren PA 05/06/2025amboo flowsheet [facility] [place] [facility] [address] [place] [address] [place] [address] Lisa Galicia DO from Last 3 Months Social History Tobacco UseTypesPacks/DayYears UsedDateSmoking Tobacco: NeverSmokeless Tobacco: Never Tobacco Cessation:Counseling Given: Not Answered CommentsNoSex and Gender InformationValueDate RecordedSex Assigned at BirthNot on fileLegal QijLlugfk10/15/2023 8:14 PM EDTGender IdentityNot on file Sexual OrientationNot on file Last Filed Vital Signs Vital SignReadingTime TakenCommentsBlood Dtjfyamy947/8205/30/2025 9:31 AM EST Bonzx06621/09/2024 11:22 AM ODFLeqhqusueti66.4 ??C (97.5 ??F)04/18/2024 11:22 AM EDTRespiratory Wqsc5484 11:22 AM EDTOxygen Uuouswkith84%04/18/2024 11:22 AM EDTInhaled Oxygen Concentration--Rhwdnh97.4 kg (150 lb 12 oz)05/30/2025 9:31 AM QSYTpysar000 cm (5' 3 )04/18/2024 11:22 AM EDTBody Mass Index26. 11:22 AM EDT Plan of Treatment DateTypeDepartmentCare Team (Latest Contact Info)Mnxmvlyyfyp42/21/2026 11:00 AM EDTProcedure Visit [facility] [place] [facility] [address] [place] [address] Lisa Galicia, DO [address] [facility] [place] [address] Procedures Procedure NamePriorityDate/TimeAssociated DiagnosisCommentsMM TOMOSYNTHESIS SCREENING BI05/31/2025 4:03 PM EST XDFRMZXARYWsmmfto76/20/2025 10:04 AM EST Human papillomavirus (HPV) type 18 DNA detected in cervical specimen POCT , GSJPAMrzrklp70/20/2025 9:37 AM EST Human papillomavirus (HPV) type 18 DNA detected in cervical specimen IGP,APTIMA HPV,AGE DBCRTrvumvl38/27/2025 8:44 AM EDT PAP TEST, ZCQMUVDUZasyquz49/27/2025 12:00 AM EDTfrom Last 3 Months Results * MM TOMOSYNTHESIS SCREENING BI (05/31/2025 4:03 PM EST)Anatomical Region LateralityModalityOtherSpecimen (Source)Anatomical Location / Laterality Collection Method / VolumeCollection TimeReceived Time05/31/2025 4:03 PM EST Narrative 05/31/2025 4:04 PM EST [facility] ?[address] ? [place] [address] ? Mammography Report ? Signed ? Patient: ARGENIS MCGARRY ?MR#: [id number] ?? : 1985 ?Acct:[id number] ?? Age/Sex: 40 / F ?ADM Date: //25 ?? Loc: MAMMO ? Attending Dr: Lisa Galicia D.O. ? Ordering Physician: Lisa Galicia D.O. ?Results: ? Date of Service: 05/31/25 ?Follow Up: ? Procedure(s): MM tomosynthesis screening BI ?? Accession Number(s): [id number] ? cc: Lisa Galicia D.O.; Yoni Mayr M.D. ? Patient Name: ? ARGENIS MCGARRY ? MR#: [id number] ? : 1985 ? Exam Date: 05/31/2025 [...] Cancers ? None ? LOCATION: ? [facility] ? BREAST COMPOSITION: ? The [...] 1604 ? DD/ 1603 ? TD/TT: ? Catcher Helper: Procedure Note Radiology, Radiologist, MD - 05/31/2025 [place] [address] Mammography Report Signed Patient: ARGENIS MCGARRY RMR#: [id number] : 1985Acct:[id number] Age/Sex: 40 / FADM Date: 05/31/25 Loc: MAMMO Attending Dr: Lisa Galicia D.O. Ordering Physician: Lisa Galicia D.O.Results: Date of Service: 05/31/25Follow Up: Procedure(s): MM tomosynthesis screening BI Accession Number(s): [id number] cc: Lisa Galicia D.O.; Yoni Mary M.D. Patient Name: ARGENIS MCGARRY MR#: [id number] : 1985 Exam Date: 05/31/2025 Ordering Doctor: [...] Treatments None Family Cancers None LOCATION: [facility] BREAST COMPOSITION: The breasts are [...] on 05/31/2025 at 16:03 Dictated By: Michael aMy M.D. Signed By:05/31/25 1604 DD/ 1603 TD/TT: Catcher Helper: izing ProviderSusana TypeResult Bentley Galicia DOCLINISYNC IMAGINGFinal Result * Colposcopy (05/30/2025 10:04 AM EST) Victorina Tidwell LPN - 05/30/2025 10:04 AM EST Victorina Penn LPN 06/05/2025 10:06 AM Colposcopy Date/Time: 05/30/2025 10:04 AM Performed by: Lisa Galicia DO Authorized by: Lisa Galicia DO ?? Procedure location: cervix ?? [...] handouts given: no ?? Authorizing ProviderResult TypeResult Bentley Choudhuryo DOIN CLINIC/BEDSIDE ORDERABLESFinal Result * POCT , urine manually resulted (05/30/2025 9:37 AM EST)ComponentValue Ref RangeTest MethodAnalysis TimePerformed AtPathologist SignaturePreg Test, UrNegativeNegativeSpecimen (Source)Anatomical Location / LateralityCollection Method / VolumeCollection TimeReceived DlhcFdbtd43/20/2025 9:37 AM EST Narrative Authorizing ProviderResult TypeResult StatusCorey Grayson [facility]ITAL[facility]ARE TEST ENTER/EDIT ORDERABLESFinal Result * [...] at: 01 =G ?[facility] ?? [address] [place] ??[phone] ?? Antionette Brown MD, IGP, APTIMA HPV, [...] Performed by: ? 02 ?? Mila Christiansen Washer Hand (ASCP) Electronically si... ?02 ?? Susy Gaston [...] pap test was interpreted ?? using the Viewabill(R) [employer] Technologyius(TM) Cervical Algorithm whole ?? slide imaging system. HPV Genotype Reflex ?? Note ?02 ?? Criteria not met, HPV Genotype not performed. ?FLAG LEGEND: ?L-Low Normal,H-High Normal,LL-Alert Low,HH-Alert High <-Panic Low,>-Panic High,A-Abnormal,AA-Critical Abnormal Performed at: 02 WB ?[facility] ?? [address] [facility], [place] ??[phone] ?? Antionette Brown MD, HPV APTIMAPositive(A)NegativeTBHComment: This nucleic acid amplification test detects fourteen high- risk HPV types (16,18,31,33,35,39,45,51,52,56,58,59,66,68) without differentiation. Performed at: ??=G - [facility] [address] [facility], [place] ??[phone] [address] [place]: Antionette Brown MD, Phone: ??[phone] Performed at: ??WB - [facility] [address] [facility], [place] ??[phone] Superintendent [place]: Antionette Brown MD, Phone: ??[phone] Specimen (Source)Anatomical Location / LateralityCollection Method / Volume Collection TimeReceived Time05/06/2025 8:44 AM EDT1 12:56 PM EDT Narrative CLINISYNC - 05/10/2025 4:09 PM EDT BRUSH-SPATULA CERVIX ENDOCERVIX Authorizing ProviderResult TypeResult StatusAmy [facility] BLOOD ORDERABLES Final ResultPerforming OrganizationAddressCity/State/ZIP CodePhone Number CLINISYNC [facility] * (ABNORMAL) PAP TEST, EXTERNAL (05/06/2025 12:00 AM EDT) Narrative Authorizing ProviderResult TypeResult StatusFazio Nurse [facility] ObLAB CYTOLOGY ORDERABLESFinal ResultPerforming OrganizationAddressCity/State/ZIP CodePhone Number EXTERNAL LAB from Last 3 Months Insurance * Guarantor: Argenis McgarryAccount TypeRelation to PatientDate of BirthPhone Billing AddressPersonal/QnvzgfRptv1985 [address] [address] Care Teams Team MemberRelationshipSpecialtyStart DateEnd Date Yoni Mary MD [address] [place] [phone] [facility] Ldayaycl84/8/24
--- OUTSIDE RECORDS SUMMARY | 2025-06-05 14:37 | XMS_ITS | Clinical Summary ---
Author Organization [facility] Address [address] [place] [address], [address] [place] [address] Care Team Providers Care Lead Developer Name Role Phone Ciro Jessica MD Primary Care Provider [phone] Allergies Active AllergyReactionsCriticalityNoted DateCommentsSulfa AntibioticsNausea And BepmreyaEpyg67/02/2019 Medications MedicationSigDispense QuantityRefillsLast FilledStart DateEnd DateStatus montelukast [...] InformationValueDate RecordedSex Assigned at BirthNot on fileLegal IweYtiepi82/10/2013 9:24 AM ESTGender Identity Not on fileSexual OrientationNot on file Last Filed Vital Signs Vital SignReadingTime TakenCommentsBlood Lzgatzbx499/7507 10:22 AM EDT Aacqu278501/09/2019 10:22 AM DVLOjwcrlqpqsb94.3 ??C (97.4 ??F)01/09/2019 10:22 AM EDTRespiratory Pvmj083001/09/2019 10:22 AM EDTOxygen Vomwnlocnb79%01/09/2019 10:22 AM EDTInhaled Oxygen Concentration--Vjohen39.3 kg (141 lb 11.2 oz)01/09/2019 10:22 AM EDTHeight--Body Mass Index-- Plan of Treatment Not on file Insurance * Guarantor: Argenis Garcia TypeRelation to PatientDate of BirthPhone Billing AddressPersonal/OneumnZcij1985 [address] [address] [place] [phone] Care Teams Team MemberRelationshipSpecialtyStart DateEnd Ciro Jessica MD [address] [place] [address] PCP - GeneralFamily Medicine01/09/19
--- OUTSIDE RECORDS SUMMARY | 2025-06-05 14:37 | XMS_ITS | Encounter Summary ---
Author Organization [facility] Address [address] [facility] [place] [address] Care Team Providers Care Central Lab Technician Name Role Phone Yoni Mary MD Primary Care Provider [phone] Encounter Details DateTypeDepartmentCare Team (Latest Contact Info)Otnsnccigyp81/20/2025bstract [facility] [place] [address] Cole Galicia DO [address] [place] [address] Dr [place], [place] [address] Social History Tobacco UseTypesPacks/DayYears UsedDateSmoking Tobacco: NeverSmokeless Tobacco: NeverCommentsNoSex and Gender InformationValueDate RecordedSex Assigned at BirthNot on fileLegal MfqCfjron18/15/2023 8:14 PM EDTGender IdentityNot on fileSexual OrientationNot on filedocumented as of this encounter Plan of Treatment DateTypeDeparthenry ford hospitalCare Team (Latest Contact Info)Hsuqsrsrrtp51/21/2026 11:00 AM EDTProcedure Visit [facility] [place] [facility] [employer] [place] [address] Cole Galicia DO [address], [facility]11 documented as of this encounter Visit Diagnoses Not on filedocumented in this encounter Care Teams Team MemberRelationshipSpecialtyStart DateEnd Date Yoni Mary MD [address] [place] [address] PCP - GeneralFamily Mziclcye64/8/24documented as of this encounter
== END 2025-05-30 14:34 | disposition home or self-care (01) ==
LOC: LAB 14:33
PROVIDERS: PCP Family Medicine; Visit Provider Obstetrics & Gynecology
DX: R87.618 Other abnormal cytological findings on specimens from cervix uteri (principal)
CPT/HCPCS: 88305; 88341; 88342

== ENCOUNTER 2025-05-31 13:47 | Outpatient (OUT) | payer BC, SELFPAY ==
--- OUTSIDE RECORDS SUMMARY | 2025-05-30 09:30 | XMS_ITS | Encounter Summary ---
Author Organization [facility] Address [address] [facility] [place] [address] Care Team Providers Care Mobile Marketing Manager Name Role Phone Yoni Mary MD Primary Care Provider [phone] Reason for Visit * ReasonCommentsColposcopy Encounter Details DateTypeDepartmentCare Team (Latest Contact Info)Yjbdejndlty02/20/2025 9:30 AM ESTProcedure Visit [facility] [address] [facility] [place] [address] Cole Galicia DO [address] [facility] [address] [place], [facility] Human papillomavirus (HPV) type 18 DNA detected in cervical specimen Social History Tobacco UseTypesPacks/DayYears UsedDateSmoking Tobacco: NeverSmokeless Tobacco: NeverCommentsNoSex and Gender InformationValueDate RecordedSex Assigned at BirthNot on fileLegal VksCxozca88/15/2023 8:14 PM EDTGender IdentityNot on fileSexual OrientationNot on filedocumented as of this encounter Last Filed Vital Signs Vital SignReadingTime TakenCommentsBlood Wfwkudbc025/8211 9:31 AM EST Pulse--Temperature--Respiratory Rate--Oxygen Saturation--Inhaled Oxygen Concentration--Eofslg26.4 kg (150 lb 12 oz)05/30/2025 9:31 AM ESTHeight--Body Mass Index26.710/03/2024 11:22 AM EDTdocumented in this encounter Plan of Treatment DateTypeDepartmentCare Team (Latest Contact Info)Trhrqydyslr53/21/2026 11:00 AM EDTProcedure Visit [facility] [address] [facility] [place] [address] Cole Galicia DO [address] [facility] [place] [address] NameTypePriorityAssociated DiagnosesOrder ScheduleColposcopyProceduresRoutine Human papillomavirus (HPV) type 18 DNA detected in cervical specimen Expected: 05/30/2025 (Approximate), Expires: 05/30/2026olposcopyProcedures Routine Human papillomavirus (HPV) type 18 DNA detected in cervical specimen Ordered: 05/30/2025documented as of this encounter Procedures Procedure NamePriorityDate/TimeAssociated DiagnosisCommentsPOCT , URINE Niyujnw2005/30/2025 9:37 AM EST Human papillomavirus (HPV) type 18 DNA detected in cervical specimen PAP TEST, HKNFVRJYSntqbot53/27/2025 12:00 AM EDTdocumented in this encounter Results * POCT , urine manually resulted (05/30/2025 9:37 AM EST)ComponentValue Ref RangeTest MethodAnalysis TimePerformed AtPathologist SignaturePreg Test, UrNegativeNegativeSpecimen (Source)Anatomical Location / LateralityCollection Method / VolumeCollection TimeReceived QrrrTbqty37/20/2025 9:37 AM EST Narrative Authorizing ProviderResult TypeResult StatusCole Galicia DOPOINT OF CARE TEST ENTER/EDIT ORDERABLESFinal Result * (ABNORMAL) PAP TEST, EXTERNAL (05/06/2025 12:00 AM EDT) Narrative Authorizing ProviderResult TypeResult StatusFazio Nurse [facility] Ob[facility] CYTOLOGY ORDERABLESFinal ResultPerforming OrganizationAddressCity/State/ZIP CodePhone Number EXTERNAL LAB documented in this encounter Visit Diagnoses Diagnosis Human papillomavirus (HPV) type 18 DNA detected in cervical specimen documented in this encounter Care Teams Team MemberRelationshipSpecialtyStart DateEnd Date Yoni Mary MD [address] [place] [phone] PCP - GeneralFamily Qwhzwwda64/8/24documented as of this encounter
--- OUTSIDE RECORDS SUMMARY | 2025-05-31 13:49 | XMS_ITS | Clinical Summary ---
Author Organization [facility] Address [facility] [place] [address] Care Team Providers Care Fee Clerk Name Role Phone Unavailable Primary Care Provider Unavailabl e Social History Tobacco UseTypesPacks/DayYears UsedDateSmoking Tobacco: Never Assessed CommentsUnknownSex and Gender InformationValueDate RecordedSex Assigned at Not on fileLegal CgjIijowz24/02/2012 5:26 PM ESTGender IdentityNot on fileSexual OrientationNot on file Plan of Treatment Health MaintenanceDue DateLast DoneCommentsAnxiety Lubiedpdb44/28/2002Depression Bqtnqdwak17/28/2002HIV Anqgybkdc86/28/2002Hepatitis C Njhnnzwsm72/28/2002 DTaP,Tdap,Td Vaccine (1 - Tdap)2003Hepatitis B Vaccine (1 of 3 - 19+ 3- dose series)2003Cervical Cancer Vdsymvhov09/28/2005HPV Vaccine (1 - 3-dose SCDM series)2011Mammogram Opbizggwh35/28/2024Covid-19 Vaccine (2024- season)2025Influenza Vaccine (#1)2025
--- OUTSIDE RECORDS SUMMARY | 2025-05-31 13:49 | XMS_ITS | Clinical Summary ---
Author Organization [facility] Address [address] [place] [address], [address] [place] [address] Care Team Providers Care Software Installation Engineer Name Role Phone Ciro Jessica MD Primary Care Provider [phone] Allergies Active AllergyReactionsCriticalityNoted DateCommentsSulfa AntibioticsNausea And VwywcbafPeab61/02/2019 Medications MedicationSigDispense QuantityRefillsLast FilledStart DateEnd DateStatus montelukast (SINGULAIR) 10 MG tablet Indications:Seasonal allergic rhinitis due to pollenTake 1 tablet by mouth daily 30 tablet Active levocetirizine (XYZAL) 5 MG tablet Indications:Seasonal allergic rhinitis due to pollenTake 1 tablet by mouth nightly 30 tablet Active Active Problems No known active problems Social History Tobacco UseTypesPacks/DayYears UsedDateSmoking Tobacco: NeverSmokeless Tobacco: NeverCommentsUnknownSex and Gender InformationValueDate RecordedSex Assigned at BirthNot on fileLegal VgrLejolg04/10/2013 9:24 AM ESTGender Identity Not on fileSexual OrientationNot on file Last Filed Vital Signs Vital SignReadingTime TakenCommentsBlood Sxuzzola935/7507 10:22 AM EDT Bvcqa226401/09/2019 10:22 AM MDBFyvuiktmhrw96.3 ??C (97.4 ??F)01/09/2019 10:22 AM EDTRespiratory Iedx238401/09/2019 10:22 AM EDTOxygen Aftnicvouk59%01/09/2019 10:22 AM EDTInhaled Oxygen Concentration--Wwtaqr66.3 kg (141 lb 11.2 oz)01/09/2019 10:22 AM EDTHeight--Body Mass Index-- Plan of Treatment Not on file Insurance * Guarantor: Argenis Garcia TypeRelation to PatientDate of BirthPhone Billing AddressPersonal/CaqjcvNiub1985 [address] [address] [place] [id number] Care Teams Team MemberRelationshipSpecialtyStart DateEnd Ciro Jessica MD [address] [place] [address] PCP - GeneralFamily Medicine01/09/19
--- OUTSIDE RECORDS SUMMARY | 2025-05-31 13:49 | XMS_ITS | Clinical Summary ---
Author Organization [facility] Address [address] [place] [address] Care Team Providers Care Coffee Grower Name Role Phone Yoni Mary MD Primary Care Provider [phone] Allergies Active AllergyReactionsCriticalityNoted DateCommentsSulfa AntibioticsNausea And IwoqgwspRsgh58/02/2019 Medications MedicationSigDispense QuantityRefillsLast FilledStart DateEnd DateStatus cyclobenzaprine (Flexeril) 10 MG tablet Indications:Neck muscle spasmTake 1 tablet (10 mg) by mouth 3 (three) times a day as needed for muscle spasms 30 tablet /Discontinued fluconazole (Diflucan) 150 MG tablet Indications:Yeast infectionTake 1 tablet (150 mg) by mouth every 3rd (third) day for 2 doses 2 tablet /Expired Active Problems ProblemNoted DateDiagnosed DateAnnual physical exam04/18/2024 [...] not to smoke. Mild intermittent asthma without vqqppcomluvp20/09/2024Neck muscle spasm 04/18/2024 Assessment & Plan (04/18/2024 11:44 AM EDT): Recent pain and spasms. Treat with prednisone. Use flexeril and heat PRN. Start ROM exercises. Encounters DateTypeDepartmentCare SzqjFajspqmagbn48/20/2025 9:30 AM ESTProcedure Visit [facility] [address] [place] [address] [place] [address] Cole Galicia DO Human papillomavirus (HPV) type 18 DNA detected in cervical /27/2025 8:40 AM EDTProcedure Visit [facility] [address] [place] [address] [place] [id number] Cole Galicia DO Abnormal Papanicolaou smear of cervix with positive human papilloma virus (HPV) test; Breast cancer screening by mammogram; Yeast ewyfjtkcv82/27/2025Clinisync Result Encounter [facility] Unsolicited Zara Ren PA 5Bamboo flowsheet [facility] [address] [place] [address] [place] [address] Cole Galicia DO from Last 3 Months Social History Tobacco UseTypesPacks/DayYears UsedDateSmoking Tobacco: NeverSmokeless Tobacco: Never Tobacco Cessation:Counseling Given: Not Answered CommentsNoSex and Gender InformationValueDate RecordedSex Assigned at BirthNot on fileLegal PneAmhboz76/15/2023 8:14 PM EDTGender IdentityNot on file Sexual OrientationNot on file Last Filed Vital Signs Vital SignReadingTime TakenCommentsBlood Pdffeltk165/8211 9:31 AM EST Pnxft37825/09/2024 11:22 AM VWPThrcfazznjx92.4 ??C (97.5 ??F)04/18/2024 11:22 AM EDTRespiratory Ckfp1165 11:22 AM EDTOxygen Xhfiwugxnc92%04/18/2024 11:22 AM EDTInhaled Oxygen Concentration--Hdouts11.4 kg (150 lb 12 oz)05/30/2025 9:31 AM BSKVdwqxx687 cm (5' 3 )04/18/2024 11:22 AM EDTBody Mass Index26.710 11:22 AM EDT Plan of Treatment DateTypeDepartmentCare Team (Latest Contact Info)Qmuomexnaux41/21/2026 11:00 AM EDTProcedure Visit [facility] [address] [facility] [place] [address] Cole Galicia DO [address] [facility] [place] [address] Procedures Procedure NamePriorityDate/TimeAssociated DiagnosisCommentsPOCT , URINE Mdfgxrd9705/30/2025 9:37 AM EST Human papillomavirus (HPV) type 18 DNA detected in cervical specimen IGP,APTIMA HPV,AGE OUQQHroqbke93/27/2025 8:44 AM EDT PAP TEST, CKJZQJAOVvhhahd85/27/2025 12:00 AM EDTfrom Last 3 Months Results * POCT , urine manually resulted (05/30/2025 9:37 AM EST)ComponentValue Ref RangeTest MethodAnalysis TimePerformed AtPathologist SignaturePreg Test, UrNegativeNegativeSpecimen (Source)Anatomical Location / LateralityCollection Method / VolumeCollection TimeReceived DpxxOhqay27/20/2025 9:37 AM EST Narrative Authorizing ProviderResult TypeResult StatusCorey Grayson DOPOINT OF CARE TEST ENTER/EDIT ORDERABLESFinal Result * (ABNORMAL) IGP,APTIMA HPV,AGE GDLN (05/06/2025 8:44 AM EDT)ComponentValueRef RangeTest MethodAnalysis TimePerformed AtPathologist SignatureAGE GDLN ACOG TESTINGNote.TBHComment: ?? TESTS ? RESULT ??FLAG ??UNITS ?REF RANGE ??LAB ?? Clinician Provided Cytology Information ?? Source.............Cervix;Endocervix ?? No. of containers..01 ThinPrep Vial Age Algo ACOG Orin... ??30-65 ? 01 ?FLAG LEGEND: ?L-Low Normal,H-High Normal,LL-Alert Low,HH-Alert High <-Panic Low,>-Panic High,A-Abnormal,AA-Critical Abnormal Performed at: 01 =G ?[facility] ?? [address] [place], [place] ??[address] ?? Antionette Brown MD, IGP, APTIMA HPV, RFX 16/18,45Note(A).TBHComment: ?? TESTS ? RESULT ??FLAG ??UNITS ?REF RANGE ??LAB DIAGNOSIS: ? [A] ?02 ?? EPITHELIAL CELL ABNORMALITY. ?? ATYPICAL SQUAMOUS CELLS OF UNDETERMINED SIGNIFICANCE (ASC-US). ?? FUNGAL ORGANISMS MORPHOLOGICALLY CONSISTENT WITH MICHELLE SPECIES ARE ?? PRESENT. Specimen adequacy: ?02 ?? Satisfactory for evaluation. ??Endocervical and/or squamous metaplastic ?? cells (endocervical component) are present. Performed by: ? 02 ?? Mila Christiansen Store Merchandiser (ASCP) Electronically si... ?02 ?? Susy Gaston MD, Pathologist . ? 02 Pathologist ICD10: ?02 ?? R87.610, R87.5 Note: ? Note ?02 ?? The Pap smear is a screening test designed to aid in the ?? detection of premalignant and malignant conditions of the ?? uterine cervix. ??It is not a diagnostic procedure and ?? should not be used as the sole means of detecting cervical ?? cancer. ??Both false-positive and false-negative reports do ?? occur. Test Methodology: ? Note ?02 ?? This liquid based ThinPrep(R) pap test was interpreted ?? using the Sociall(R) Genius(TM) Cervical Algorithm whole ?? slide imaging system. HPV Genotype Reflex ?? Note ?02 ?? Criteria not met, HPV Genotype not performed. ?FLAG LEGEND: ?L-Low Normal,H-High Normal,LL-Alert Low,HH-Alert High <-Panic Low,>-Panic High,A-Abnormal,AA-Critical Abnormal Performed at: 02 WB [facility] ?? [address] [place], [place] ??[address] ?? Antionette Brown MD, HPV APTIMAPositive(A)NegativeTBHComment: This nucleic acid amplification test detects fourteen high- risk HPV types (16,18,31,33,35,39,45,51,52,56,58,59,66,68) without differentiation. Performed at: ??=G - [facility] ??[id number] Meat Counter Clerk: Antionette Brown MD, Phone: ??[phone] Performed at: ??WB - [facility] ??[id number] Meat Counter Clerk: Antionette Brown MD, Phone: ??[phone] Specimen (Source)Anatomical Location / LateralityCollection Method / Volume Collection TimeReceived Time05/06/2025 8:44 AM EDT1 12:56 PM EDT Narrative [facility] - 05/10/2025 4:09 PM EDT BRUSH-SPATULA CERVIX ENDOCERVIX Authorizing ProviderResult TypeResult StatusAmy Cant[place] PALAB BLOOD ORDERABLES Final ResultPerforming OrganizationAddressCity/State/ZIP CodePhone Number [facility] * (ABNORMAL) PAP TEST, EXTERNAL (05/06/2025 12:00 AM EDT) Narrative Authorizing ProviderResult TypeResult StatusFazio Nurse [facility] ObLAB CYTOLOGY ORDERABLESFinal ResultPerforming OrganizationAddressCity/State/ZIP CodePhone Number EXTERNAL LAB from Last 3 Months Insurance * Guarantor: Argenis GarciaAccount TypeRelation to PatientDate of BirthPhone Billing AddressPersonal/GozaesAzuu1985 [address] [address] Care Teams Team MemberRelationshipSpecialtyStart DateEnd Date Yoni Mary MD [address] [place] [phone] PCP - GeneralFamily Faxjdjfa30/8/24
--- NOTE | 2025-05-31 13:50 | MM_ITS ---
Patient Name: ELLI MCGARRY MR#: [id number] : 1985 Exam Date: 05/31/2025 Ordering Doctor: DR LISA CALLOWAY . RADIOLOGY REPORT PROCEDURE: MM TOMOSYNTHESIS SCREENING BI COMPARISON: MM TOMOSYNTHESIS SCREENING BI, 05/30/2024. MM TOMOSYNTHESIS DIAGNOSTIC BI, 06/08/2023. MG MAMM ANNI DIAG W CAD, 07/18/2019. INDICATIONS: Screening Calculator Name NCI Breast Cancer Risk Assessment Tool 5 Year Breast Cancer Risk Not Reported. Lifetime Breast Cancer Risk Not Reported. Personal Breast Cancer No Personal Ovarian Cancer No Treatments None Family Cancers None LOCATION: [facility] BREAST COMPOSITION: The breasts are extremely dense, which lowers the sensitivity of mammography. FINDINGS: RIGHT BREAST: No significant suspicious finding. There is a biopsy clip on the right. LEFT BREAST: No significant suspicious finding. Similar focal asymmetries are present. Benign-appearing calcifications are present. DIAGNOSTIC CATEGORY 2--BENIGN FINDING. NO CHANGE FROM COMPARISON. RECOMMENDATIONS: ROUTINE MAMMOGRAM AND CLINICAL EVALUATION IN 12 MONTHS. Dictated by: Michael May MD on 05/31/2025 at 15:59 Approved by: Michael May MD on 05/31/2025 at 16:03
--- OUTSIDE RECORDS SUMMARY | 2025-05-31 13:50 | XMS_ITS | CCD ---
Author Organization [facility] Care Team Providers Care Underlay Stitcher Name Role Phone THALIA BARAJAS Admitting Unavailable THALIA BARAJAS Attending Unavailable ALLYN, RAYSA Primary Care Unavailable JENN, THALIA Consulting Unavailable HERB EPPERSON Consulting Unavailable NATHALIE, DR YONI Hernandez Admitting Unavailable NATHALIE, DR YONI Hernandez Attending Unavailable NATHALIE, DR YONI Hernandez Primary Care Unavailable NATHALIE, DR YONI Hernandez Consulting Unavailable GRAYSON, DR GONZALEZ Admitting Unavailable GRAYSON, DR GONZALEZ Attending Unavailable ALLYN, RAYSA Primary Care Unavailable GRAYSON, DR GONZALEZ Consulting Unavailable JENN, THALIA Admitting Unavailable JENN, THALIA Attending Unavailable ALLYN, RAYSA Primary Care Unavailable Yoni Mary MD Primary Care Provider Yoni Mary MD Unavailable Yoni Mary MD Primary Care Provider [phone] Yoni Mary MD Attending Provider Yoni Mary MD Primary Care Provider [phone] LISA GALICIA Attending Unavailable LISA GALICIA Attending Unavailable Yoni Mary MD Unavailable Allergies Allergy ClassificationReported Allergen(s)Allergy TypeDate of OnsetReaction(s) Facility (1 source)Sulfonamides (Antibiotic)Drug allergy (disorder)23-40-3232Jcq [facility] Repository (10 sources)Sulfonamides (Antibiotic)Drug Hwzmrgmuflc80-93-4441Fpiqeu And VomitingNOMS Healthcare Medications Current Medications MedicationDrug Class(es)DatesSig (Normalized)Sig (Original)cyclobenzaprine hydrochloride 10 mg oral tablet (11 sources)Muscle RelaxantStart: 10-28-2017 End: 87-47-4491zsxo 1 tablet by mouth three times daily as needed for muscle spasmscyclobenzaprine (Flexeril) 10 MG tablet Indications: Neck muscle spasm Take 1 tablet (10 mg) by mouth 3 (three) times a day as needed for muscle spasms 30 tablet 1 04/18/2024 Activefluconazole 150 mg oral tablet (1 source)Azole AntifungalStart: 05-06-2025 End: 83-37-1207knej 1 tablet by mouth oncefluconazole (Diflucan) 150 MG tablet Indications: Yeast infection Take 1 tablet (150 mg) by mouth every 3rd (third) day for 2 doses 2 tablet 05/06/2025 05/10/2025 ActivepredniSONE 50 mg oral tablet (2 sources)Start: 04-18-2024 End: 96-53-9166cefc 1 tablet by mouth once dailypredniSONE (Deltasone) 50 MG tablet Indications: Neck muscle spasm Take 1 tablet (50 mg) by mouth Daily for 6 days 6 tablet 04/18/2024 04/24/2024 Active Problems Active Problems Problem ClassificationProblemDateDocumented DateEpisodic/ChronicAbdominal hernia (1 source)Hiatal hernia; Translations: [Diaphragmatic hernia without obstruction or gangrene]63-11-0317AttjlonvRqzuzjpha pain (1 source)Right upper quadrant pain; Translations: [Right upper quadrant pain] 34-02-8639WbjzmdyiVbpjnu (11 sources)Mild intermittent asthma; Translations: [Mild intermittent asthma, uncomplicated]Onset: 451294-69-5410EyogkzyUsesxzaqdc disorders (1 source)Gastroesophageal reflux disease; Translations: [Gastro-esophageal reflux disease without esophagitis]97-50-5426JffhbtiJabmvugdh and duodenitis (1 source)Gastritis; Translations: [Unspecified chronic gastritis without bleeding]85-06-7527LokqkklCuosteq (1 source)Mycosis; Translations: [Candidiasis, unspecified]21-84-6168Loeudjqr Other nervous system disorders (1 source)Paresthesia of left upper limb; Translations: [Paresthesia of skin] 79-37-6338FjorinlgArtwibj on above:Problem List clean-up per request of Phys. EHR CmteOther screening for suspected conditions (not mental disorders or infectious disease) (10 sources)Encounter for screening for malignant neoplasm of cervix; Translations: [Patient encounter status]Onset: 55-93-1593HzhkjkerZkgnm upper respiratory disease (1 source)Allergic rhinitis due to pollen; Translations: [Allergic rhinitis due to pollen]46-17-1958Lkjxkkc Past or Other Problems Problem ClassificationProblemDateDocumented DateEpisodic/ChronicImmunizations and screening for infectious disease (1 source)Encounter for screening for human papillomavirus (HPV); Translations: [ENC SCREENING HUMAN PAPILLOMAVIRUS]Onset: 94-37-6864AxybfaavNtpcd connective tissue disease (13 sources)Muscle spasm of cervical muscle of neck; Translations: [Other muscle spasm]Onset: 323497-39-0939ItdxcipoZmqakid and strains (8 sources)Unspecified sprain of right shoulder joint, initial encounter; Translations: [Strain of other muscles, fascia and tendons at shoulder and upper arm level, unspecified arm, initial encounter]Onset: 81-67-1096Qivhzdzg Results Test NameValueInterpretationReference RangeFacilityIGP,APTIMA HPV,AGE GDLNon 30-26-0179MEJ GDLN ACOG TESTINGNote.NOMS HealthcareComment on above:TESTS RESULT FLAG UNITS REF RANGE LAB Clinician Provided Cytology Information Source.............Cervix;Endocervix No. of containers..01 ThinPrep Vial Age Algo ACOG Orin... 30-65 FLAG LEGEND: L-Low Normal,H-High Normal,LL-Alert Low,HH-Alert High <-Panic Low,>-Panic High,A-Abnormal,AA-Critical Abnormal Performed at: 01 =[address] [place] [address] Antionette Brown MD, HPV APTIMAPositiveAbnormalNegativeNOMS HealthcareComment on above:This nucleic acid amplification test detects fourteen high- risk HPV types (16,18,31,33,35,39,45,51,52,56,58,59,66,68) without differentiation. Performed at: =[address], [place] [id number] Chief Unit Forester: Antionette Brown MD, Phone: [phone] Performed at: [address] [id number] Chief Unit Forester: Antionette Brown MD, Phone: [phone] IGP, APTIMA HPV, RFX 16/18,45NoteAbnormal.NOMS HealthcareComment on above:TESTS RESULT FLAG UNITS REF RANGE LAB DIAGNOSIS: [A] 02 EPITHELIAL CELL ABNORMALITY. ATYPICAL SQUAMOUS CELLS OF UNDETERMINED SIGNIFICANCE (ASC-US). FUNGAL ORGANISMS MORPHOLOGICALLY CONSISTENT WITH MICHELLE SPECIES ARE PRESENT. Specimen adequacy: 02 Satisfactory for evaluation. Endocervical and/or squamous metaplastic cells (endocervical component) are present. Performed by: 02 Mila Christiansen Meat And Seafood Manager (ASCP) Electronically si... Susy Gaston MD, Pathologist . 02 Pathologist ICD10: 02 R87.610, R87.5 Note: Note 02 The Pap smear is a screening test designed to aid in the detection of premalignant and malignant conditions of the uterine cervix. It is not a diagnostic procedure and should not be used as the sole means of detecting cervical cancer. Both false-positive and false-negative reports do occur. Test Methodology: Note 02 This liquid based ThinPrep(R) pap test was interpreted using the WiN MS(R) [employer]Kal[employer](TM) Cervical Algorithm whole slide imaging system. HPV Genotype Reflex Note 02 Criteria not met, HPV Genotype not performed. FLAG LEGEND: L-Low Normal,H-High Normal,LL-Alert Low,HH-Alert High <-Panic Low,>-Panic High,A-Abnormal,AA-Critical Abnormal Performed at: [address] [address] Antionette Brown MD, Interpretation and review of laboratory resultsAbnormalNOOR Healthcare BRUSH-SPATULA CERVIX ENDOCERVIX CLINISYNCCACHE VAL[facility] HealthcareBasophils Auto (Bld) [#/Vol]Ordered By: Yoni Mary on 89-16-9419Vecagmrxo (Bld) [#/Vol]0.0 10 3/uL0.0-0.1FKing's Daughters Medical Center OhioBasophils/100 WBC Auto (Bld)Ordered By: Yoni Mary on 04-25-2025 Basophils/100 WBC (Bld)0.6 %0.2-2.0[facility] HospitalCholesterol in LDL Calc [Mass/Vol]Ordered By: Yoni Mary on 33-36-9267Fmirraiylzr in LDL [Mass/Vol]100.8 mg/dLMercy Health St. Joseph Warren HospitalComment on above:<100 mg/dl MJXLAFE335-136 mg/dl NEAR OR ABOVE MSFTNKX100-525 mg/dl BORDERLINE VTCJ625-242 mg/dl HIGH>190 mg/dl VERY HIGHCholesterol in VLDL Calc [Mass/Vol] Ordered By: Yoni Mary on 35-31-8794Ujlmdalakdn in VLDL [Mass/Vol]13.2 mg/dL [facility] HospitalEosinophils/100 WBC Auto (Bld)Ordered By: Yoni Mary on 73-14-7115Otqvswyejpy/100 WBC (Bld)1.5 %0.9-7.0[facility] HospitalErythrocyte distribution width Auto (RBC) [Ratio]Ordered By: Yoni Mary on 71-73-9016Kehvvychaad distribution width (RBC) [Ratio]12.7 %11.0-15.[address] [facility] Warren HospitalGlobulin Calc (S) [Mass/Vol]Ordered By: Chad Lamas on 25-48-7156Gchnhneu (S) [Mass/Vol]3.7 g/dLMercy Health St. Joseph Warren HospitalGlomerular filtration rate (GFR) estimation in non- AmericanOrdered By: Chad Lamas on 53-55-0510QKQ/1.73 sq M.predicted among non-blacks MDRD (S/P/Bld) [Vol rate/Area]mL/min/{1.73_m2}>=60 mL/min/1.73m 2FKing's Daughters Medical Center OhioHematocrit Auto (Bld) [Volume fraction]Ordered By: Yoni Mary on 66-48-9221Wpaaggpxvg (Bld) [Volume fraction]40.6 %36.0-48.0[facility] HospitalHemoglobin [Mass/volume] in BloodOrdered By: Yoni Mary on 42-03-5145Axhbherepe (Bld) [Mass/Vol]13.6 g/dL12.0-16.0[facility] HospitalLaboratory - Chemistry and Chemistry - challengeOrdered By: Chad Lamas on 80-22-7506Tnaiavi [Mass/Vol]3.9 g/dL3.4-5.0[facility] HospitalALP [Catalytic activity/Vol]57 U/L71-596TlopwcmloMercy Health St. Joseph [facility] Hospital ALT [Catalytic activity/Vol]23 U/V30-81XogtdivdxMercy Health St. Joseph Warren HospitalAST [Catalytic activity/Vol]13 U/TNnf00-31FwmfqudsjMercy Health St. Joseph Warren HospitalBilirubin [Mass/Vol]0.4 mg/dL0.2-1.0[facility] HospitalCalcium [Mass/Vol]8.7 mg/dL8.5-10.1FKing's Daughters Medical Center OhioChloride [Moles/Vol]105 mmol/L 98-107[facility] Warren HospitalCO2 [Moles/Vol]25.7 mmol/L21.0-32.[address] [facility] HospitalCreatinine [Mass/Vol]0.60 mg/dL0.55-1.[address] [facility] Warren HospitalGFR/1.73 sq M.predicted MDRD (S/P/Bld) [Vol rate/Area]mL/min/{1.73_m2}>=60 mL/min/1.73m 2FKing's Daughters Medical Center Ohio Glucose [Mass/Vol]92 mg/xA68-488PchoedqbwMercy Health St. Joseph Warren HospitalPotassium [Moles/Vol]4.5 mmol/L3.5-5.1FKing's Daughters Medical Center OhioProtein [Mass/Vol] 7.6 g/dL6.4-8.2FGalion Community Hospitalodium [Moles/Vol]141 mmol/L 136-145[facility] HospitalUrea nitrogen [Mass/Vol]9.0 mg/dL 7.0-18.0[facility] HospitalUrea nitrogen/Creatinine [Mass ratio] 15.0 mg/mgMercy Health St. Joseph Warren HospitalLaboratory - Chemistry and Chemistry - challengeOrdered By: Yoni Mary on 82-41-5644Fgnlpybkulo [Mass/Vol]173 mg/dL <=200[facility] Warren HospitalCholesterol in HDL [Mass/Vol]59 mg/dL40-[address] [facility] Warren HospitalComment on above:> or =60 mg/dl - LOW CARDIOVASCULAR RISK<40 mg/dl - HIGH CARDIOVASCULAR RISKTriglyceride [Mass/Vol]66 mg/dL<=150Mer[facility] St. [facility] Warren HospitalLaboratory - Hematology and Cell countsOrdered By: Yoni Mary on 75-84-0894Qllbpmzg granulocytes/100 WBC (Bld) 0.1 %0.0-0.5FKing's Daughters Medical Center OhioLeukocytes [#/volume] corrected for nucleated erythrocytes in Blood by Automated counOrdered By: Yoni Mary on 34-30-8867TBC corrected for nucl RBC Auto (Bld) [#/Vol]6.7 10 3/uL4.0-11.[address] [facility] Warren HospitalLymphocytes Auto (Bld) [#/Vol]Ordered By: Yoni Mary on 47-64-5128Nfgnqdmjgho (Bld) [#/Vol]2.4 10 3/uL1.2-3.8[facility] Warren HospitalLymphocytes/100 WBC Auto (Bld)Ordered By: Yoni Mary on 08-73-5850Jatelibcxhd/100 WBC (Bld)35.9 %20.5-60.0The Jewish HospitalH Auto (RBC) [Entitic mass]Ordered By: Yoni Mary on 25-73-4217SPZ (RBC) [Entitic mass]30.5 pg26.7-34.0[facility] Warren HospitalMCHC Auto (RBC) [Mass/Vol]Ordered By: Yoni Mary on 35-18-8173RIUW (RBC) [Mass/Vol]33.5 g/dL29.9-35.2FKing's Daughters Medical Center OhioMCV Auto (RBC) [Entitic vol] Ordered By: Yoni Mary on 17-34-6686JQP (RBC) [Entitic vol]91.0 fL81.0-99.[address] [facility] Warren HospitalMonocytes Auto (Bld) [#/Vol]Ordered By: Yoni Mary on 37-50-5517Gctnldcht (Bld) [#/Vol]0.5 10 3/uL0.3-0.8[facility] HospitalMonocytes/100 WBC Auto (Bld)Ordered By: Yoni Mary on 27-77-1617Ntkpfzdcm/100 WBC (Bld)7.2 %1.7-12.0[facility] Neutrophils Auto (Bld) [#/Vol]Ordered By: Yoni Mary on 22-64-6825Goevtebtfbo (Bld) [#/Vol]3.7 10 3/uL1.4-6.5FKing's Daughters Medical Center OhioNeutrophils/100 WBC Auto (Bld)Ordered By: Yoni Mary on 11-61-8147Bhdjtfwfqrt/100 WBC (Bld) 54.7 %43.0-75.0[facility] HospitalNo Panel InformationOrdered By: Yoni Mary on 28-40-8933Xcbhvghzecl # (Auto)0.1 10 3/uL0.0-0.7FKing's Daughters Medical Center OhioImmature Granulocyte # (Auto)0.01 10 3/uL0.00-0.[address] [facility] Warren HospitalPlatelet mean volume Auto (Bld) [Entitic vol] Ordered By: Yoni Mary on 46-07-5081Voianuae mean volume (Bld) [Entitic vol] 10.4 fL9.5-13.5FKing's Daughters Medical Center OhioPlatelets Auto (Bld) [#/Vol] Ordered By: Yoni Mary on 30-45-1047Paaflkrhm (Bld) [#/Vol]246 10 3/zE451-[address] [facility] Warren HospitalRBC Auto (Bld) [#/Vol]Ordered By: Yoni Mary on 11-46-0532ZFR (Bld) [#/Vol]4.46 10 6/uL4.20-5.40City Hospitalerum or plasma albumin/globulin mass ratioOrdered By: Chad Lamas on 18-21-1349Svdrivo/Globulin [Mass ratio]1.1 {ratio}City Hospitalerum or plasma anion gap determinationOrdered By: Chad Lamas on 08-93-5031Gklcb gap [Moles/Vol]14.8 mmol/LFGalion Community Hospitalerum or plasma total cholesterol/high density lipoprotein (HDL) cholesterol mass rat Ordered By: Yoni Mary on 15-24-3040Rzgjffqlqve.total/Cholesterol in HDL [Mass ratio]2.9 {ratio}[facility] Warren HospitalComment on above:3.3 - 4.4 LOW RISK4.4 - 7.1 AVERAGE RISK7.1 - 11.0 MODERATE RISK>11.0 HIGH RISKIGP,APTIMA HPV,AGE GDLNon 04-06-9231ZDN GDLN ACOG TESTINGNote.NOMS HealthcareComment on above:TESTS RESULT FLAG UNITS REF RANGE LAB Clinician Provided Cytology Information Source.............Cervix;Endocervix No. of containers..01 ThinPrep Vial Age Yeimi NOVOA Orin... 30 FLAG LEGEND: L-Low Normal,H-High Normal,LL-Alert Low,HH-Alert High <-Panic Low,>-Panic High,A-Abnormal,AA-Critical Abnormal Performed at: 01 = [address] [address] Antionette Brown MD, HPV APTIMAPositiveAbnormalNegativeNOMS HealthcareComment on above:This nucleic acid amplification test detects fourteen high- risk HPV types (16,18,31,33,35,39,45,51,52,56,58,59,66,68) without differentiation. HPV GENOTYPE 16NegativeNegativeNOMS HealthcareHPV GENOTYPE 18,45PositiveAbnormal NegativeNOMS HealthcareComment on above:Performed at: =[facility] [address] [id number] Chief Unit Forester: Antionette Brown MD, Phone: [phone] Performed at: [facility]ocadostoreK[facility] [address] [place] [id number] Chief Unit Forester: David Rodrigues MD, Phone: [phone] IGP, APTIMA HPV, RFX 16/18,45Note.NOMS HealthcareComment on above:TESTS RESULT FLAG UNITS REF RANGE LAB DIAGNOSIS: 02 NEGATIVE FOR INTRAEPITHELIAL LESION OR MALIGNANCY. Specimen adequacy: 02 Satisfactory for evaluation. No endocervical component is identified. Performed by: 02 Maki Mariee Uniform Room Attendant ([facility]) . 02 Note: Note 03 The Pap smear is a screening test designed to aid in the detection of premalignant and malignant conditions of the uterine cervix. It is not a diagnostic procedure and should not be used as the sole means of detecting cervical cancer. Both false-positive and false-negative reports do occur. Test Methodology: Note 03 This liquid based ThinPrep(R) pap test was screened with the use of an image guided system. HPV Genotype Reflex Note 02 Criteria met, see HPV Genotype results. FLAG LEGEND: L-Low Normal,H-High Normal,LL-Alert Low,HH-Alert High <-Panic Low,>-Panic High,A-Abnormal,AA-Critical Abnormal Performed at: 02 [facility] [address] [place] [address] David Rodrigues MD, 03 [facility] [address] [address] Antionette Brown MD, Interpretation and review of laboratory resultsAbnormalPhelps Health BRUSH-SPATULA CERVIX ENDOCERVIX CLINISYNCPhelps HealthUrinalysis macro (dipstick) panel (U)on 10-09-2024 Bilirubin, UANegativeNegative - 4(70) +++ mg/dLNOMS HealthcareBlood, UAPositive Negative - 50 Ilan/mcLNOMS HealthcareComment on above:traceClarity, UAClearNOMS HealthcareColor, UAYellowNOMS HealthcareGlucose, UANegativeNegative - 2000(110) ++++ mg/dLNOMS HealthcareInterpretation and review of laboratory resultsAbnormal NOMS HealthcareKetones, UANegativeNegative - 160(16) ++++ mg/dLNOMS Healthcare Leukocytes, UAPositiveNegative - 500+++ Clarisa/mcLNOMS HealthcareComment on above: LargeNitrite, UANegativeNegative - PositiveNOMS HealthcarepH, UA75 - 9NOMS HealthcareProtein, UANegativeNegative - 2000(20) ++++ mg/dLNOMS HealthcareSpec Grav, UA1.011 - 1.03NOMS HealthcareUrobilinogen, UA0.20.2 - 12 mg/dLNOMS HealthcareNOMS HealthcareMM TOMOSYNTHESIS SCREENING BIon 85-59-4436[place] [address] Mammography Report Signed Patient: ARGENIS GARCIA MR#: [id number] : 1985 Acct:[id number] Age/Sex: 39 / F ADM Date: 05/30/24 Loc: MAMMO Attending Dr: Yoni Mary M.D. Ordering Physician: Yoni Mary M.D. Results: Date of Service: 05/30/24 Follow Up: Procedure(s): MM tomosynthesis screening BI Accession Number(s): [id number] cc: Yoni Mary M.D. Patient Name: ARGENIS GARCIA MR#: [id number] : 1985 Exam Date: 05/30/2024 Ordering Doctor: DR Yoni Mary . RADIOLOGY REPORT PROCEDURE: MM TOMOSYNTHESIS SCREENING BI COMPARISON: MG MAMM RT DIAG W CAD, 02/14/2020. MM TOMOSYNTHESIS DIAGNOSTIC BI, 06/08/2023. INDICATIONS: Screening Calculator Name NCI Breast Cancer Risk Assessment Tool 5 Year Breast Cancer Risk Not Reported. Lifetime Breast Cancer Risk Not Reported. Personal Breast Cancer No Personal Ovarian Cancer No Treatments None Family Cancers None LOCATION: [facility] BREAST COMPOSITION: The breasts are extremely dense, which lowers the sensitivity of mammography. FINDINGS: DIAGNOSTIC CATEGORY 2--BENIGN FINDING. NO CHANGE FROM COMPARISON. Scattered benign-appearing nodules are present. Scattered benign-appearing calcifications are present. Scattered benign-appearing lymph nodes are present. RIGHT BREAST: No significant suspicious finding. LEFT BREAST: No significant suspicious finding. RECOMMENDATIONS: ROUTINE MAMMOGRAM AND CLINICAL EVALUATION IN 12 MONTHS. PLEASE NOTE: A NORMAL MAMMOGRAM DOES NOT EXCLUDE THE POSSIBILITY OF BREAST CANCER. A CLINICALLY SUSPICIOUS PALPABLE LUMP SHOULD BE BIOPSIED. Dictated by: Herb Rose MD on 05/30/2024 at 12:41 Approved by: Herb Rose MD on 05/30/2024 at 12:42 Dictated By: Herb Rose M.D. Signed By: 05/30/24 1243 DD/ 1242 TD/TT: Community Outreach Manager:TBHRadiology, Radiologist, - 05/30/2024 [place] [address] Mammography Report Signed Patient: ARGENIS GARCIA MR#: [id number] : 1985 Acct:[id number] Age/Sex: 39 / F ADM Date: 05/30/24 Loc: MAMMO Attending Dr: Yoni Mary M.D. Ordering Physician: Yoni Mary M.D. Results: Date of Service: 05/30/24 Follow Up: Procedure(s): MM tomosynthesis screening BI Accession Number(s): [id number] cc: Yoni Mary M.D. Patient Name: ARGENIS GARCIA MR#: [id number] : 1985 Exam Date: 05/30/2024 Ordering Doctor: DR Yoni Ashton RADIOLOGY REPORT PROCEDURE: MM TOMOSYNTHESIS SCREENING BI COMPARISON: MG MAMM RT DIAG W CAD, 02/14/2020. MM TOMOSYNTHESIS DIAGNOSTIC BI, 06/08/2023. INDICATIONS: Screening Calculator Name NCI Breast Cancer Risk Assessment Tool 5 Year Breast Cancer Risk Not Reported. Lifetime Breast Cancer Risk Not Reported. Personal Breast Cancer No Personal Ovarian Cancer No Treatments None Family Cancers None LOCATION: [facility] BREAST COMPOSITION: The breasts are extremely dense, which lowers the sensitivity of mammography. FINDINGS: DIAGNOSTIC CATEGORY 2--BENIGN FINDING. NO CHANGE FROM COMPARISON. Scattered benign-appearing nodules are present. Scattered benign-appearing calcifications are present. Scattered benign-appearing lymph nodes are present. RIGHT BREAST: No significant suspicious finding. LEFT BREAST: No significant suspicious finding. RECOMMENDATIONS: ROUTINE MAMMOGRAM AND CLINICAL EVALUATION IN 12 MONTHS. PLEASE NOTE: A NORMAL MAMMOGRAM DOES NOT EXCLUDE THE POSSIBILITY OF BREAST CANCER. A CLINICALLY SUSPICIOUS PALPABLE LUMP SHOULD BE BIOPSIED. Dictated by: Herb Rose MD on 05/30/2024 at 12:41 Approved by: Herb Rose MD on 05/30/2024 at 12:42 Dictated By: Herb Rose M.D. Signed By: 05/30/24 1243 DD/ 1242 TD/TT: Community Outreach Manager: [facility] HOSPITALBernadette [facility] CampusRadiology Study observation (narrative)[facility] TOMOSYNTHESIS SCREENING BIOrdered By: Radiologist Radiology on 69-95-6416NEVUPhelps Health Work Phone: cbc AUTO DIFFon 77-18-0750WPTK #0.0 103/ulNormal 0.0-0.1[facility] Medical CenterComment on above:Performed By: #### CBC #### [facility] [address] [place] [address] Dr. Radha JohnsonBasophils/100 WBC (Bld)0.4 %Normal0.2-2.0[facility] Comment on above:Performed By: #### CBC #### [facility] [address] [address] [address] Radha Friedman #0.1 103/ulNormal0.0-0.7[facility] HospitalComment on above: Performed By: #### CBC #### [facility] [address] [address] [address] Radha Porterosinophils/100 WBC (Bld)1.1 %Normal0.9-7.0[facility] Comment on above:Performed By: #### CBC #### [facility] [address] [place] [address] Dr. Radha Porterrythrocyte distribution width (RBC) [Ratio]12.8 %Bbdfba60.0-15.0 [facility] Hospitalment on above:Performed By: #### CBC #### [facility] [address] [place] [address] Dr. Radha JohnsonHematocrit (Bld) [Volume fraction]42.0 %Byiisz58.0-48.0[facility] HospitalComment on above:Performed By: #### CBC #### [facility] [address] [place] [address] Dr. Radha JohnsonHemoglobin (Bld) [Mass/Vol]13.6 g/qBSnikuc44.0-16.0[facility] HospitalComment on above:Performed By: #### CBC #### [facility] [address] [place] [address] Dr. Radha Cervantes #0.04 10e3/ulCritically high0.00-0.03[facility] Comment on above:Performed By: #### CBC #### [facility] [address] [place] [address] Dr. Radha JohnsonIG %0.4 %Normal0.0-0.5[facility] HospitalComment on above: Performed By: #### CBC #### [facility] [address] [place] [address] Dr. Radha Hurst #2.4 103/ulNormal1.2-3.8[facility] HospitalComment on above:Performed By: #### CBC #### [facility] [address] [place] [address] Dr. Radha Barajashocytes/100 WBC (Bld)24.4 %Nxbfvu22.5-60.0The [facility] Hospitalment on above:Performed By: #### CBC #### [facility] [address] [place] [address] Dr. Radha MilesUAL DIFF REQNONormalThe [facility]ers HospitalComment on above: Performed By: #### CBC #### [facility] [address] [place] [address] Dr. Radha Agustin (RBC) [Entitic mass]29.6 hiPizwlw42.7-34.0[facility] HospitalComment on above:Performed By: #### CBC #### [facility] [address] [place] [address] Dr. Radha Davis (RBC) [Mass/Vol]32.4 g/dRUbifcb21.9-35.2[facility] HospitalComment on above:Performed By: #### CBC #### [facility] [address] [place] [address] Dr. Radha Davis (RBC) [Entitic vol]91.3 uYGsccwx98.0-99.0[facility] HospitalComment on above:Performed By: #### CBC #### [facility] [address] [place] [address] Dr. Radha Valverde #0.6 103/ulNormal0.3-0.8[facility] HospitalComment on above:Performed By: #### CBC #### [facility] [address] [place] [address] Dr. Radha Rauschocytes/100 WBC (Bld)6.0 %Normal1.7-12.0[facility] Comment on above:Performed By: #### CBC #### [facility] [address] [place] [address] Dr. Radha Louis #6.6 103/ulCritically high1.4-6.5[facility] Comment on above:Performed By: #### CBC #### [facility] [address] [place] [address] Dr. Radha Rickutrophils/100 WBC (Bld)67.7 %Zfrmke98.0-75.0The [facility] HospitalComment on above:Performed By: #### CBC #### [facility] [address] [place] [address] Dr. Radha Mcnairlet mean volume (Bld) [Entitic vol]10.6 fLNormal9.5-13.5The [facility]riners HospitalComment on above:Performed By: #### CBC #### [facility] [address] [address] [address] Radha JohnsonPLT337 103/jsGhjdao075-117Zzy [facility] on above: Performed By: #### CBC #### [facility] [address] [address] [address] Radha JohnsonRBC4.60 106/ulNormal4.20-5.40The [facility] HospitalComtr[facility] on above:Performed By: #### CBC #### [facility] [address] [address] [address] Radha JohnsonWBC9.7 103/ulNormal4.0-11.0The [facility] HospitalComtr[facility] on above: Performed By: #### CBC #### [facility] [address] [address] [address] Radha JohnsonGLYCOHEMOGLOBIN A1Con 04-18-9773UBO RECOMMENDATIONSEE BELOWCleveland Clinic Lutheran HospitalComtrinity health [facility] on above:Result Comment: ADA RECOMMENDED LIMIT 4.0 - 6.0 ADA THERAPEUTIC TARGET < 7.0 ACTION SUGGESTED > 7.0Performed By: #### A1C #### [facility] [address] [address] [address] Radha JohnsonGlucose [Mass/Vol]111 mg/dLNoCleveland Clinic [facility] Hospital on above:Performed By: #### A1C #### [facility] [address] [address] [address] Radha JohnsonHbA1c (Bld) [Mass fraction]5.5 %Normal4.5-6.2The [facility] on above:Performed By: #### A1C #### [facility] [address] [address] [address] Radha JohnsonLIPID PROFILEon 25-01-4751DHOS-HDL RATIO NORMSEE [facility] on above:Result Comment: 3.3 - 4.4 LOW RISK 4.4 - 7.1 AVERAGE RISK 7.1 - 11.0 MODERATE RISK >11.0 HIGH RISKPerformed By: #### TSH, CMP, LIPID #### [facility] [address] [address] [address] Radha JohnsonCholesterol [Mass/Vol]217 mg/dLCritically high<=200The [facility] on above:Performed By: #### TSH, CMP, LIPID #### [facility] [address] [address] [address] Radha JohnsonCholesterol in HDL [Mass/Vol]56 mg/pPJpoozm79-49Ync [facility] HospitalComtr[facility] on above:Performed By: #### TSH, CMP, LIPID #### [facility] [address] [address] [address] Radha JohnsonCholesterol in LDL [Mass/Vol]131.8 mg/dLNoSelect Medical Specialty Hospital - Columbus SouthComtrinity health [facility] on above:Performed By: #### TSH, CMP, LIPID #### [facility] [address] [place] [address] Dr. Radha Hernandezesterloki.total/Cholesterol in HDL [Mass ratio]3.9 {ratio} NormalThe [facility]ers HospitalComment on above:Performed By: #### TSH, CMP, LIPID #### [facility] [address] [address] [address] Radha Cuevas NORMAL> or = 60 mg/dl - LOW CARDIOVASCULAR RISK <40 mg/dl - HIGH CARDIOVASCULAR RISKOhioHealth Southeastern Medical CenterComtrinity health [facility] on above:Performed By: #### TSH, CMP, LIPID #### [facility] [address] [address] [address] Radha JohnsonLDL CALC NORMALSEE BELOWOhioHealth Southeastern Medical CenterComment on above:Result Comment: <100 mg/dl OPTIMAL 100 - 129 mg/dl NEAR OR ABOVE OPTIMAL 130 - 159 mg/dl BORDERLINE HIGH 160 - 189 mg/dl HIGH >190 mg/dl VERY HIGH Performed By: #### TSH, CMP, LIPID #### [facility] [address] [address] [address] Radha JohnsonTriglyceride [Mass/Vol]146 mg/dLNormal<=150The [facility] Comment on above:Performed By: #### TSH, CMP, LIPID #### [facility] [address] [address] [address] Radha PetersonLDL CALC29.2 mg/dLNormalThe [facility] HospitalComment on above: Performed By: #### TSH, CMP, LIPID #### [facility] [address] [address] [address] Radha JohnsonPROF 14(COMP METB)on 86-78-5886Unvtdui [Mass/Vol]4.2 g/dLNormal 3.4-5.0The [facility] HospitalComment on above:Performed By: #### TSH, CMP, LIPID #### [facility] [address] [address] [address] Radha JohnsonAlbumin/Globulin [Mass ratio]1.0 {ratio}NormalThe [facility]ers HospitalComment on above:Performed By: #### TSH, CMP, LIPID #### [facility] [address] [address] [address] Radha Drummond [Catalytic activity/Vol]71 U/HLgehfh34-216Qdg [facility] HospitalComment on above:Performed By: #### TSH, CMP, LIPID #### [facility] [address] [address] [address] Radha Ksier [Catalytic activity/Vol]37 U/ZZtysbr94-45Owr [facility]icking Memorial Hospitalment on above:Performed By: #### TSH, CMP, LIPID #### [facility] [address] [address] [address] Radha Cueva gap [Moles/Vol]9.3 mmol/LNormalThe [facility] HospitalComment on above:Performed By: #### TSH, CMP, LIPID #### [facility] [address] [address] [address] Radha Cifuentes [Catalytic activity/Vol]18 U/UWoxrgt38-83Hcj [facility] on above:Performed By: #### TSH, CMP, LIPID #### [facility] [address] [address] [address] Radha JohnsonBilirubin [Mass/Vol]0.2 mg/dLNormal0.2-1.0The [facility] Comment on above:Performed By: #### TSH, CMP, LIPID #### [facility] [address] [address] [address] Radha JohnsonCalcium [Mass/Vol]9.7 mg/dLNormal8.5-10.1The [facility] Comment on above:Performed By: #### TSH, CMP, LIPID #### [facility] [address] [address] [address] Radha JohnsonChloride [Moles/Vol]101 mmol/VGwhrwa66-366Wkf [facility] Comment on above:Performed By: #### TSH, CMP, LIPID #### [facility] [address] [place] [address] Dr. Rdaha JohnsonCO2 [Moles/Vol]30.0 mmol/PQpyqhb84.0-32.0[facility] Comment on above:Performed By: #### TSH, CMP, LIPID #### [facility] [address] [place] [address] Dr. Radha JohnsonCreatinine [Mass/Vol]0.76 mg/dLNormal0.55-1.02[facility] CenterComment on above:Performed By: #### TSH, CMP, LIPID #### [facility] [address] [place] [address] Dr. Radha PorterGFR-AF MACANESE>60Normal>=60The [facility] HospitalComment on above:Performed By: #### TSH, CMP, LIPID #### [facility] [address] [place] [address] Dr. Radha PorterGFR-NON AF MACANESE>60Normal>=60The [facility] HospitalComment on above:Performed By: #### TSH, CMP, LIPID #### [facility] [address] [place] [address] Dr. Radha JohnsonGlobulin (S) [Mass/Vol]4.1 g/dLNormalThe [facility] HospitalComment on above:Performed By: #### TSH, CMP, LIPID #### [facility] [address] [place] [address] Dr. Radha JohnsonGlucose [Mass/Vol]105 mg/tXHetpbv49-216ZjwOhio State University [facility] Medical Center Comment on above:Performed By: #### TSH, CMP, LIPID #### [facility] [address] [place] [address] Dr. Radha JohnsonPotassium [Moles/Vol]4.3 mmol/LNormal3.5-5.1The [facility] Comment on above:Performed By: #### TSH, CMP, LIPID #### [facility] [address] [address] [address] Radha JohnsonProtein [Mass/Vol]8.3 g/dLCritically high6.4-8.2The [facility] HospitalComment on above:Performed By: #### TSH, CMP, LIPID #### [facility] [address] [place] [address] Dr. Radha JohnsonSodium [Moles/Vol]136 mmol/HSceydx895-002Aex [facility] Comment on above:Performed By: #### TSH, CMP, LIPID #### [facility] [address] [place] [address] Dr. Radha JohnsonUrea nitrogen [Mass/Vol]12.0 mg/dLNormal7.0-18.0The [facility] HospitalComment on above:Performed By: #### TSH, CMP, LIPID #### [facility] [address] [place] [address] Dr. Radha JohnsonUrea nitrogen/Creatinine [Mass ratio]15.8 mg/mgNormalThe [facility] HospitalComment on above:Performed By: #### TSH, CMP, LIPID #### [facility] [address] [place] [address] Dr. Radha Maynard 43-17-6707RIE9.039 uIU/mLNormal0.358-3.740[facility] Medical CenterComment on above:Performed By: #### TSH, CMP, LIPID #### [facility] [address] [place] [address] Dr. Radha Puga ACOG PANEL 2: 30 to 65on 03-30-2022..NormalThe [facility] HospitalComment on above:Result Comment: Performed at: WBPerformed By: #### [id number] #### [facility] [address] [address] [address] Radha Burgos Gdln ACOG Teuigwb76-17AuzvueDeiSelect Medical Specialty Hospital - Columbus SouthComment on above:Performed By: #### [id number] #### [facility] [address] [address] [address] Radha JohnsonDIAGNOSIS:CommentOhioHealth Southeastern Medical CenterComtrinity health [facility] hospital on above: Result Comment: NEGATIVE FOR INTRAEPITHELIAL LESION OR MALIGNANCY. Performed at: WBPerformed By: #### [id number] #### [facility] [address] [place] [address] Dr. Radha Paulson AptimaPositiveAbnormalNegMercy Health Fairfield HospitalComment on above:Result Comment: This nucleic acid amplification test detects fourteen high-risk HPV types (16,18,31,33,35,39,45,51,52,56,58,59,66,68) without differentiation. Performed at: =GPerformed By: #### [id number] #### [facility] [address] [place] [address] Dr. Radha JohnsonHPAlfonzo Genotype 16NegativeLake Regional Health SystemalNegativeOhio State University Wex[facility] Medical CenterComtrinity health [facility] on above:Result Comment: Performed at: =GPerformed By: #### [id number] #### [facility] [address] [place] [address] Dr. Radha Paulson Genotype 18,45PositiveAbnormalNegativeOhio State University [facility] Comment on above:Result Comment: Performed at: =GPerformed By: #### [id number] #### [facility] [address] [place] [address] Dr. Radha JohnsonMethodology:CommentOhioHealth Southeastern Medical CenterComtrinity health [facility] hospital on above: Result Comment: This liquid based ThinPrep(R) pap test was screened with the use of an image guided system. Performed at: WBPerformed By: #### [id number] #### [facility] [address] [place] [address] Dr. Radha JohnsonNote:CommentNormUniversity Hospitals Cleveland [facility] Center on above:Result Comment: The Pap smear is a screening test designed to aid in the detection of premalignant and malignant conditions of the uterine cervix. It is not a diagnostic procedure and should not be used as the sole means of detecting cervical cancer. Both false-positive and false-negative reports do occur. . Performed at: WBPerformed By: #### [id number] #### [facility] [address] [address] [address] Radha JohnsonPerformed by:CommentRegency Hospital Toledo on above: Result Comment: Martina Cordoba, Uniform Room Attendant (ASCP) Performed at: WBPerformed By: #### [id number] #### [facility] [address] [place] [address] Dr. Radha JohnsonSpecimen adequacy:CommentRegency Hospital Toledo on above:Result Comment: Satisfactory for evaluation. Endocervical and/or squamous metaplastic cells (endocervical component) are present. Performed at: WBPerformed By: #### [id number] #### [facility] [address] [place] [address] Dr. Radha JohnsonMRI SHOULDER RT WO CONon 39-91-7143ZPO SHOULDER RT WO CONEXAM: MRI SHOULDER RT WO CON HISTORY: Right [...] Electronically authenticated by: HERB EPPERSON Date: 2022-02-18 15:36[facility] Vital Signs Date TimeVital SignValuePerforming RokixdtmdEdvrhnee96-47-0154 08:55-0400Body mass index (BMI) [Ratio]26.31 kg/j7Uvyes Grayson DO Work Phone: [facility] HealthFujrphrdrk55-54-5886 08:55-0400Body .36 kgCorey Grayson DO Work Phone: [facility] HealthIbhhpiyduh62-40-8084 08:55-0400Diastolic blood xtrfwreq06 mm[Hg]Lisa Grayson DO Work Phone: [facility] HealthBcznfsreyj31-19-0996 08:55-0400Systolic blood kmdyaltw303 mm[Hg][facility] Shelby Hospitalzio DO Work Phone: [facility] HealthZjepnbpxdr52-66-4097 10:35-0400Body qlehnb614.02 cmYoni Mary MD Work Phone: [facility]10-20-2025 10:35-0400 Body mass index (BMI) [Ratio]26.9 kg/m2Yoni Mary MD Work Phone: [facility]10-20-2025 10:35-0400 Body .1 [degF]Yoni Mary MD Work Phone: [facility]10-20-2025 10:35-0400 Body ypyepk67.94 kgYoni Mary MD Work Phone: [facility]10-20-2025 10:35-0400 Diastolic blood azqdkbhk45 mm[Hg]Yoni Mary MD Work Phone: [facility]10-20-2025 10:35-0400 Heart rate75 /minYoni Mary MD Work Phone: [facility]10-20-2025 10:35-0400 Respiratory rate18 /minYoni Mary MD Work Phone: [facility]10-20-2025 10:35-0400 SaO2% (BldA) [Mass fraction]99 %Yoni Mary MD Work Phone: [facility]10-20-2025 10:35-0400 Systolic blood mm[Hg]Yoni Mary MD Work Phone: [facility]04-01-2025 09:14-0400 Body mass index (BMI) [Ratio]27.1 kg/w7Pawbo Grayson DO Work Phone: NOSaint Luke's HospitalCoiaphugcd28-40-1127 09:14-0400Body .4 kg Lisacatherine Choudhuryo DO Work Phone: NOSaint Luke's HospitalXypzafyrxz33-92-0060 09:14-0400Diastolic blood zjbqmicp86 mm[Hg]Lisacatherine Choudhuryo DO Work Phone: NOSaint Luke's HospitalJazrtylqzk67-58-6261 09:14-0400Systolic blood golqubcz486 mm[Hg]Lisa Choudhuryo DO Work Phone: NOSaint Luke's HospitalKtkhuizqxs04-37-4950 11:22-0400Body rxuglo207 cm Yoni Mary MD Work Phone: [facility] HealthHppxzyzhxo06-10-6205 11:22-0400Body mass index (BMI) [Ratio]26.75 kg/m2Yoni Mary MD Work Phone: [facility] HealthBkjttpvuhf13-67-4801 11:22-0400Body temperature 97.5 [degF]Yoni Mary MD Work Phone: [facility] HealthNerodtqizp24-99-8159 11:22-0400Body jkvvdu64.49 kgYoni Mary MD Work Phone: [facility] HealthYckswvatlj71-53-0464 11:22-0400Diastolic blood yngsckqn29 mm[Hg]Yoni Mary MD Work Phone: noSaint Luke's HospitalJjugcrlvkz34-80-9252 11:22-0400Heart xhti263 /min Yoni Mary MD Work Phone: noSaint Luke's HospitalCxalxrdkad89-74-7196 11:22-0400Respiratory rate22 /minYoni Mary MD Work Phone: noSaint Luke's HospitalYbzjzujngk71-77-8526 11:22-5748FgW2% (BldA) [Mass fraction]99 %Yoni Mary MD Work Phone: noSaint Luke's HospitalDkbmtriapu80-68-3859 11:22-0400Systolic blood xlsigwks260 mm[Hg]Yoni Mary MD Work Phone: [facility] Encounters Encounter DateEncounter TypeCare ProviderFacilityStart: 05-06-2025 End: 59-68-5010Gvypca flowsheetCorey Grayson DO Work Phone: [facility] [place] [facility]BGYNStart: 05-06-2025 End: 59-21-0500Ngevls flowsheetCorey Grayson DO Work Phone: [facility]BGYNStart: 05-06-2025 End: 24-06-6972Wiklvtsyv Result EncounterAmy Mikal MARTINEZ Work Phone: [facility] External Department UnsolicitedStart: 05-06-2025 End: 17-77-2270Cbkaoe outpatient visit 10 minutesCorey Grayson DO Work Phone: [facility]uneet OBGYNComment on above:Abnormal Papanicolaou smear of cervix with positive human papilloma virus (HPV) test; Breast cancer screening by mammogram; Yeast infectionStart: 05-06-2025 End: 46-73-0060rskzkoffjrOFJCB FAZIONot AvailableStart: 04-29-2025 End: 89-20-6078vbpoeibqgdPbnj Naderer MD Work Phone: -[facility] ClydeStart: 04-29-2025 End: 40-42-7448Pzqgndh encounter procedureYoni Mary MD-[facility] Work Phone: Start: 45-73-6431Hiq-patient / Non-visitYoni Mary MD-[facility] Work Phone: Start: 80-44-2927Dduyxpo encounter procedureYoni Mary MD Work Phone: [facility]: 10-09-2024 End: 66-22-1151Mutrmn flowsheetCorey Grayson DO Work Phone: [facility] BCP OBStart: 10-09-2024 End: 72-36-4821Qeqhhl flowsheetCorey Grayson DO Work Phone: [facility] BCP OBStart: 10-09-2024 End: 16-28-2251Zycywhxdb Result EncounterGeneric External Data ProviderNOMS External Department UnsolicitedStart: 10-09-2024 End: 32-23-0939Hgmjbbp encounter procedureCorey Grayson DO Work Phone: noms HealthcareStart: 10-09-2024 End: 93-90-0448Itjpomsy preventive med est patient 40-64yrsCorey Grayson DO Work Phone: [facility] BCP OBComment on above:Well woman exam with routine gynecological exam; Breast cancer screening by mammogramStart: 10-09-2024 End: 16-86-5506xydiugxvrhDKOEX FAZIONot AvailableStart: 05-30-2024 End: 56-29-6520Vwocwusex Result EncounterYoni Mary MD Work Phone: [facility] External Department UnsolicitedStart: 05-30-2024 End: 18-61-4790Gepobiwmg Result EncounterYoni Mary MD Work Phone: [facility] External Department UnsolicitedStart: 04-18-2024 End: 37-01-0434Gngugn flowsheetYoni Mary MD Work Phone: [facility] CWM FMStart: 04-18-2024 End: 65-81-2756Mnnnft flowsheetYoni Mary MD Work Phone: [facility] CWM FMStart: 04-18-2024 End: 12-00-7789Elcyehf encounter procedureYoni Mary MD Work Phone: [facility] Work Phone: Start: 04-18-2024 End: 36-09-9005Cwdscgcg preventive med est patient 40-64yrsMarc Nathalie JONES Work Phone: [facility] CWM FMComment on above:Annual physical exam (Primary Dx); Neck muscle spasm; Breast cancer screening by mammogramStart: 40-48-7234Sgyqqikxl for general adult medical examination without abnormal findingsDR YONI MARIERTnoe Destrehan HospitalStart: 05-27-2022 End: 99-07-5145oqkowapqhbID YONI Hernandez NADERERFacility:C2Mrrnp: 05-27-2022 End: 51-79-7564Npttdfjif for general adult medical examination without abnormal findingsDR YONI Hernandez NADERERFacility:O9Vgncy: 03-23-2022 End: 80-99-4614hnixgrxpcsSL LISA FAZIOFacility:O3Sxvoa: 02-18-2022 End: 29-42-3313akwzzeltpzFEQCTXCJ EBERLYFacility:R7Uqelf: 01-26-2022 End: 41-13-6431jdrxgixfccDCLZODNZ EBERLYFacility:H1 Procedures DateProcedureProcedure DetailPerforming ClinicianStart: 90-52-9986XBK,APTIMA HPV,AGE GDLNAmy Mikal MARTINEZ Work Phone: Start: 17-03-5335Jchkp dip stick/tablet rgnt non-auto w/o micrscpCorey Grayson DO Work Phone: Start: 52-73-8914AHK,APTIMA HPV,AGE GDLNCorey Grayson DO Work Phone: Start: 04-88-4508AP TOMOSYNTHESIS SCREENING BIMarc Nathalie JONES Work Phone: Start: 21-43-2831HwuqjpenvqzMcdjk Grayson DO Work Phone: Start: 52-68-3423LqgpefmyntyBxtr Nathalie JONES Work Phone: Plan of Treatment DateCare ActivityDetailAuthorStart: 11-11-2025 End: 45-89-0328Rpxcklj encounter iirgnxpvc01/04/2026 8:40 AM EDT Procedure Visit FRANCISCO MCNAIR [address] [place] [address] Lisa Galicia, DO [address] [place], [place] [id number] NOMBernadette Teixeira OBGYNStart: 05-30-2025 Screening for malignant neoplasm of breastMammogramNOMS HealthcareStart: 05-06-2025 End: 31-27-4344BX Breast - bilateral ScreeningBilateral screening mammogram Imaging Routine Breast cancer screening by mammogram Expected: 05/06/2025 (Approximate), Expires: 07/06/2026NOMS HealthcareComment on above:Expected: 05/06/2025 (Approximate), Expires: 07/06/2026Start: 05-06-2025 End: 96-92-1580Gtbbgdx encounter chgpbsozh14/27/2025 8:40 AM EDT Procedure Visit FRANCISCO MCNAIR [address] [place] [id number] Lisa Galicia, DO [address] [place] [address] ArrivedNOMS Teixeira OBGYNComment on above:ArrivedStart: 72-17-1086Lzlwljedm vaccinationInfluenza Vaccine (Season Ended)[facility] HealthcareStart: 10-09-2024 End: 84-13-1311Pavxxzf encounter procedureNOMS BCP OBComment on above:Arrived Start: 37-04-8686Kwinidxyh for malignant neoplasm of breastMammogramNOOR HealthcareStart: 04-18-2024 End: 94-23-9091Yuhah metabolic 1998 panel - Serum or PlasmaBasic metabolic panel Lab Routine Annual physical exam Expected: 04/18/2024 (Approximate), Expires: 04/18/2025[facility] HealthcareComment on above:Expected: 04/18/2024 (Approximate), Expires: 04/18/2025Start: 04-18-2024 End: 54-24-7340HFF W Auto Differential panel - BloodCBC and differential Lab Routine Annual physical exam Expected: 04/18/2024 (Approximate), Expires: [facility] HealthcareComment on above:Expected: 04/18/2024 (Approximate), Expires: 04/18/2025Start: 04-18-2024 End: 23-43-6614Lgvcnkfqhe A1c/Hemoglobin.total in BloodHemoglobin A1c Lab Routine Annual physical exam Expected: 04/18/2024 (Approximate), Expires: 04/18/2025[facility] Healthcare Work Phone: Comment on above:Expected: 04/18/2024 (Approximate), Expires: 04/18/2025Start: 04-18-2024 End: 77-29-2925Sjcayeo function 2000 panel - Serum or PlasmaHepatic function panel Lab Routine Annual physical exam Expected: 04/18/2024 (Approximate), Expires: 04/18/2025[facility] HealthcareComment on above:Expected: 04/18/2024 (Approximate), Expires: 04/18/2025Start: 04-18-2024 End: 96-68-2308Uggio 1996 panel - Serum or PlasmaLipid panel Lab Routine Annual physical exam Expected: 04/18/2024 (Approximate), Expires: 04/18/2025[facility] HealthcareComment on above:Expected: 04/18/2024 (Approximate), Expires: 04/18/2025Start: 04-18-2024 End: 73-31-5389JZ Breast - bilateral ScreeningBilateral screening mammogram Imaging Routine Breast cancer screening by mammogram Expected: 04/18/2024, Expires: 06/18/2025[facility] HealthcareComment on above:Expected: 04/18/2024, Expires: 06/18/2025Start: 04-18-2024 End: 95-13-0215Euclxbybhon [Units/volume] in Serum or PlasmaTSH Lab Routine Annual physical exam Expected: 04/18/2024 (Approximate), Expires: 04/18/2025[facility] HealthcareComment on above:Expected: 04/18/2024 (Approximate), Expires: 04/18/2025Start: 79-09-4094Yjfynipzs vaccinationInfluenza Vaccine (#1)[facility] HealthcareStart: 96-73-5843Cbzfwblxj for malignant neoplasm of breastMammogram [facility] HealthcareStart: 15-16-8988Lexqclmma for malignant neoplasm of cervixNOOR HealthcareStart: 10-08-0737Myeamddwc for malignant neoplasm of cervixPap Smear Phelps HealthTHIN PREP TIS PAP AND HR HPV DNATHIN PREP TIS PAP AND HR HPV DNA Pathology and Cytology Routine Well woman exam with routine gynecological exam Ordered: 10/09/2024[facility] Healthcare Work Phone: comment on above:Ordered: 10/09/2024THIN PREP TIS PAP AND HR HPV DNATHIN PREP TIS PAP AND HR HPV DNA Pathology and Cytology Routine Abnormal Papanicolaou smear of cervix with positive human papilloma virus (HPV) test Ordered: 05/06/2025[facility] [employer] Work Phone: comment on above:Ordered: 05/06/2025 Immunizations Immunization DateImmunizationNotesCare YzdfwmxuEtmkblds50-68-9083bryuomwkt virus vaccine, unspecified formulationLisa Galicia DO Work Phone: [facility] Healthcare Payers DatePayer CategoryPayerPolicy [id number] [id number] UnknownBCBS BCBS [id number] 2023-[facility] [phone] [address] [place] [id number] [id number] 2.16.840.1.498194.3.57[id number] 2..840.1.406051.3.57[id number] 2..840.1.217675.3.57[id number] 2..840.1.221026.3.57[id number] 2.840.1.001002.3.57[id number] 2.840.1.942108.3.579.2.2[id number] [id number] Social History DateTypeDetailFacilityTobacco smoking status NHISTobacco smoking consumption unknownNOMS HealthcareStart: 67-34-0157Apg assigned at birthNot on fileNOMS HealthcareStart: 13-06-2835Zigtah identityNot on fileNOOR HealthcareStart: 05-19-2023 End: 06-03-8684Kwigcik smoking status NHISNever smoked tobaccoNOMS Healthcare Start: [id number] use and exposureSmokeless tobacco non-userNOMS HealthcareStart: 81-12-6813Tojwgsp of Social functionNOMS HealthcareSexFemale (finding)City Hospitaltart: [id number] Assigned At FemaleCity Hospitaltart: 66-70-1972VczBgdpqnDHPX Healthcare History of Present illness Narrative 05-06-2025 Note Date & [id number] History of Present illness Narrative* Victorina Penn LPN - 05/06/2025 8:40 AM EDT Reason for Appointment: Patient ID: Argenis Garcia is a 40 y.o. female who presents for Repeat Pap Smear Patient presents today for Repeat Pap. MEDICATIONS Current Outpatient Medications Medication Instructions cyclobenzaprine (FLEXERIL) 10 mg, Oral, 3 times daily PRN fluconazole (DIFLUCAN) 150 mg, Oral, Every 72 hours ALLERGIES Allergies Allergen Reactions Sulfa Antibiotics Nausea [...] appearance. She is well-developed. Genitourinary: Vulva normal. Cardiovascular: Rate and Rhythm: Normal rate and regular rhythm. Pulmonary: Effort: Pulmonary effort is normal. Breath sounds: Normal breath sounds. Abdominal: General: Bowel sounds are normal. There is no distension. Palpations: Abdomen is soft. Tenderness: There is no abdominal tenderness. There is no guarding or rebound. Musculoskeletal: General: No swelling. Normal range of motion. Right lower leg: No edema. Left lower leg: No edema. Neurological: Mental Status: She is alert and oriented to person, place, and time. Skin: General: Skin is warm and dry. Psychiatric: Mood and Affect: Mood normal. Behavior: Behavior normal. Vitals and nursing note reviewed. Exam conducted with a head coach present. Vitals: Estimated body mass index is 26.31 kg/m as calculated from the following: Height as of 10/9/24: 5' 3 . Weight as of this encounter: 148 lb 8 oz. BP: 114/82 No LMP recorded. (Menstrual status: IUD). Assessment/Plan ICD-10-CM 1. Abnormal Papanicolaou smear of cervix with positive human papilloma virus (HPV) test R87.618 THIN PREP TIS PAP AND HR HPV DNA 2. Breast cancer screening by mammogram Z12.31 Bilateral screening mammogram Bilateral screening mammogram 3. Yeast infection B37.9 fluconazole (Diflucan) 150 MG tablet Repeat Pap: Patient presents today for a repeat pap. Previous pap results were reviewed and noted to be Negative for Intraepithelial Lesion or Malignancy (NILM) and + HPV. Question regarding previous results were discussed. Repeat Pap was obtained without difficulty. Follow Up: Patient is to return to the office in 6 months for an annual exam. Documented by Victorina Penn LPN on behalf of: Zara Ren PA-C documented in this encounterNOMS Healthcare History of Present illness Narrative 10-09-2024 Note Date & [id number] History of Present illness Narrative* María Schneider LPN - 10/09/2024 9:00 AM EDT Reason for Appointment: Patient ID: Argenis Garcia is a 39 y.o. female who presents for Gynecologic Exam (Pt present today for annual visit. Pt complains today of having low energy, always feeling tired, irritable and hormones are everywhere. ) Patient presents today for Annual Exam. MEDICATIONS Current Outpatient Medications Medication Instructions cyclobenzaprine (FLEXERIL) 10 mg, Oral, 3 times daily PRN ALLERGIES Allergies Allergen Reactions Sulfa Antibiotics Nausea And Vomiting PROBLEMS Active Ambulatory Problems Diagnosis Date Noted Annual physical exam 04/18/2024 Mild intermittent asthma without complication (CMS/HCC) 04/18/2024 Neck muscle spasm 04/18/2024 Resolved Ambulatory [...] appearance. She is well-developed. Genitourinary: Vulva normal. Breasts: Breasts are soft. Right: Normal. Left: Normal. Cardiovascular: Rate and Rhythm: Normal rate and regular rhythm. Pulmonary: Effort: Pulmonary effort is normal. Breath sounds: Normal breath sounds. Abdominal: General: Bowel sounds are normal. There is no distension. Palpations: Abdomen is soft. Tenderness: There is no abdominal tenderness. There is no guarding or rebound. Musculoskeletal: General: No swelling. Normal range of motion. Right lower leg: No edema. Left lower leg: No edema. Neurological: Mental Status: She is alert and oriented to person, place, and time. Skin: General: Skin is warm and dry. Psychiatric: Mood and Affect: Mood normal. Behavior: Behavior normal. Vitals and nursing note reviewed. Exam conducted with a head coach present. Vitals: Estimated body mass index is 27.1 kg/m as calculated from the following: Height as of 04/18/24: 5' 3 . Weight as of this encounter: 153 lb. BP: 112/68 No LMP recorded. Patient has had an implant. ASSESSMENT & PLAN ICD-10-CM 1. Well woman exam with routine gynecological exam Z01.419 THIN PREP TIS PAP AND HR HPV DNA POCT urinalysis dipstick manually resulted 2. Breast cancer screening by mammogram Z12.31 CANCELED: Bilateral screening mammogram CANCELED: Bilateral screening mammogram Annual: Patient presents today for an annual exam. Patient states she is doing well and has no complaints. Pap was obtained without difficulty and patient given mammogram order to have scheduled/obtained. Orders Placed This Encounter Procedures POCT urinalysis dipstick manually resulted Follow Up: Patient is to return in one year for annual unless needed otherwise. Documented by María Schneider LPN on behalf of: Lisa Grayson, DO documented in this encounterNOOR Healthcare History of Present illness Narrative 04-18-2024 Note Date & [id number] History of Present illness Narrative* Yoni Mary MD - 04/18/2024 11:44 AM EDTAssociated Problem(s): Neck muscle spasm Recent pain and spasms. Treat with prednisone. Use flexeril and heat PRN. Start ROM exercises. * Yoni Mary MD - 04/18/2024 11:43 AM EDTAssociated Problem(s): Annual physical exam Due for labs. Will need mammogram in June. Discussed proper diet and regular aerobic exercise. Need aerobic exercise 5-6 days a week for 30 minutes at a time. Smaller portions and limit total calories. Colonoscopy after age 45. Tetanus every 10 years. Advised not to smoke. * Yoni Mary MD - 04/18/2024 11:15 AM EDT Images from the original note were not [...] Orders Bilateral screening mammogram [facility] Evaluation note Note Date & TypeNoteFacilityEvaluation note* Diagnosis Annual physical exam- Primary Routine general medical examination at a health care facility Neck muscle spasm Breast cancer screening by mammogram documented in this encounter [facility] Evaluation note Note Date & TypeNoteFacilityEvaluation note* Diagnosis Annual physical exam- Primary Routine general medical examination at a health care facility Neck muscle spasm Breast cancer screening by mammogram Well woman exam with routine gynecological exam Routine gynecological examination Breast cancer screening by mammogram documented in this encounter [facility] Evaluation note Note Date & TypeNoteFacilityEvaluation noteNo assessment information available [facility] [place] Work Phone: Evaluation note Note Date & TypeNoteFacilityEvaluation note* Diagnosis Annual physical exam- Primary Routine general medical examination at a health care facility Neck muscle spasm Breast cancer screening by mammogram Abnormal Papanicolaou smear of cervix with positive human papilloma virus (HPV) test Breast cancer screening by mammogram Yeast infection documented in this encounter [facility] Healthcare Reason for referral (narrative) Note Date & TypeNoteFacilityReason for referral (narrative)No reason for referral information availableSelect [facility] [place] Work Phone: Summary Purpose Family History Relationship Condition Age at Onset Recorded Date/T aleksandr family member Family history of other condition Unknow n Advance Directives Advance Directive Response Recorded Date/ Time Advance Directives No May 11, 2017 11:40am Chief Complaint and Reason for Visit Chief Complaint Admit Date Annual Wellness April 29, 2025 1 0:18am Additional Source Comments INFORMATION SOURCE (unrecogn ized section and content) DATE CREATED AUTHOR 08/24/2022 [facility] DATE CREATED AUTHOR AUTHOR'S ORGANIZ ATION 05/06/2025 [facility] EPIC Care Teams (unrecognized sec tion and content) Team MemberRelationshipSpecialtyStart DateEnd Date Yoni Mary MD [address] [place] [phone] PCP - GeneralFamily Odhgmkgd67/8/24Team MemberRelationshipSpecialtyStart DateEnd Date Yoni Mary MD [address] [place] [address] PCP - GeneralFamily Csopaxnp29/8/24Team MemberRelationshipSpecialtyStart DateEnd Date Yoni Mary MD [address] [place] [phone] PCP - [facility] Cphhsgbf18/8/24 Yoni Mary MD [address] [place] [id number] [facility]06/10/24Team MemberRelationshipSpecialtyStart DateEnd Date Yoni Mary MD [address] [place] [phone] PCP - [facility]04/17/24 Yoni Mary MD [address] [place] [phone] [facility]06/10/24Team MemberRelationshipSpecialtyStart DateEnd Date Yoni Mary MD [address] [place] [address] PCP - [facility]04/17/24 Yoni Mary MD [address] [place] [address] [facility]06/10/24 Team Status: Active Member Role/Relationship Status Dates Yoni Mary MD Primary Care Provider Active Team Status: Active Member Role/Relationship Status Dates Yoni Mary MD Primary Care Provider Active S tart: April 25, 2025 Yoni Mary MDAttending ProviderActiveStart: April 25, 2025 Team Status: Inactive Member Role/Relationship Status Dates Yoni Mary MD Primary Care Provider Active S tart: April 29, 2025 End: April 29, 2025[facility] Nathalie MDAttending ProviderActiveStart: April 29, 2025 End: April 29, 2025Team MemberRelationshipSpecialtyStart DateEnd Date Yoni Mary MD PCP - [facility]04/17/24Team MemberRelationshipSpecialtyStart DateEnd Date Yoni Mary MD PCP - [facility]04/17/24Team MemberRelationshipSpecialtyStart DateEnd Date Yoni Mary MD PCP - [facility]04/17/24 Yoni Mary MD [address] [place] [address] PCP - [place] Ytpqjtctuj85/1/244 Reason for Visit (unrecogniz ed section and content) ReasonCommentsAnnual ExamwellnessNeck PainReasonCommentsGynecologic ExamPt present today for annual visit. Pt complains today of having low energy, always feeling tired, irritable and hormones are everywhere.ReasonCommentsRepeat Pap Smear Goals (unrecognized section and content) Goals may be documented in a n alternate section FOR RECORDS PERTAINING TO PATIENTS WHO ARE [...] BE BASED ON THE PRIMARY CLINICAL RECORDS. [facility] [employer] [facility]. provides no warranty or guarantee of the accuracy or completeness of information in this document.
== END 2025-05-31 13:48 | disposition home or self-care (01) ==
LOC: MAMMO 13:47
PROVIDERS: PCP Family Medicine; Visit Provider Obstetrics & Gynecology
DX: Z12.31 Encounter for screening mammogram for malignant neoplasm of breast (principal)
CPT/HCPCS: 77063; 77067